=== PATIENT | male | born 1970 | race Caucasian/White ===

== ENCOUNTER 2017-12-19 11:30 | Inpatient (IN) | payer OTHER ==
[~2017-12-19] VITALS: Ht 172.7 cm; Wt 81.6 kg
[2017-12-19] MEDS ORDERED: FENTANYL1 EAC1 TOPIC (12:09)
[2017-12-19] MEDS ORDERED: KLONOPIN1 MG GT (12:09)
[2017-12-19] MEDS ORDERED: CEFEPIME-D2 GM/50 ML IVPB (12:09)
[2017-12-19] MEDS ORDERED: FERROUS SULFAT325 MG GT (12:09)
[2017-12-19] MEDS ORDERED: VITAMIN D1000 UNI1 GT (12:09)
[2017-12-19] MEDS ORDERED: BISACODYL5 MG RECTAL (12:09)
[2017-12-19] MEDS ORDERED: DOCUSATE SODIU100 MG ORAL (12:09)
[2017-12-19] MEDS ORDERED: HALOPERIDOL1 MG GT (12:09)
[2017-12-19] MEDS ORDERED: AMLODIPINE BESYL5 MG GT (12:09)
[2017-12-19] MEDS ORDERED: ACETAMINOPHEN325 M1 GT (12:09)
[2017-12-19] MEDS ORDERED: HYDRALAZINE HCL10 MG IV (12:09)
[2017-12-19] MEDS ORDERED: ALBUTEROL2.5 MG/3 M INH (12:09)
[2017-12-19 12:17] VITALS: BP 142/85
[2017-12-19] MEDS ORDERED: Morphine Sulfate 4mg/ml Inj IVP ONE (12:45)
[2017-12-19 12:53] LABS: BASOPHILS % (AUTO) 0.8 % (0.0-2.0); EOSINOPHILS % (AUTO) 3.4 % (0.0-3.0); HEMATOCRIT 29.2 % (42.0-52.0); HEMOGLOBIN 9.2 G/DL (14.2-18.0); LYMPHOCYTES % (AUTO) 24.4 % (20.0-45.0); MEAN CORPUSCULAR VOLUME 82 FL (80-99); MONOCYTES % (AUTO) 6.6 % (1.0-10.0); NEUTROPHILS % (AUTO) 64.9 % (45.0-75.0); PLATELET COUNT 338 K/UL (150-450); RED BLOOD COUNT 3.56 M/UL (4.70-6.10); RED CELL DISTRIBUTION WIDTH 17.4 % (11.6-14.8); WHITE BLOOD COUNT 6.8 K/UL (4.8-10.8)
[2017-12-19 13:00] LABS: ANION GAP 4 mmol/L (5-15); BLOOD UREA NITROGEN 15 mg/dL (7-18); CALCIUM 9.3 MG/DL (8.5-10.1); CARBON DIOXIDE 30 MMOL/L (21-32); CHLORIDE 99 MMOL/L (98-107); CREATININE 0.9 MG/DL (0.55-1.30); POTASSIUM 4.6 MMOL/L (3.5-5.1); SODIUM 133 MMOL/L (136-145)
[2017-12-19 13:08] LABS: INR 1.1 (0.9-1.1)
[2017-12-19 13:13] LABS: ALANINE AMINOTRANSFERASE 16 U/L (12-78); ALBUMIN 2.9 G/DL (3.4-5.0); ALBUMIN/GLOBULIN RATIO 0.5 (1.0-2.7); ALKALINE PHOSPHATASE 117 U/L (46-116); ASPARTATE AMINO TRANSFERASE 15 U/L (15-37); BILIRUBIN,TOTAL 0.5 MG/DL (0.2-1.0)
[2017-12-19 13:28] LABS: APPEARANCE,URINE TURBID; BILIRUBIN, URINE NEGATIVE (NEGATIVE); COLOR,URINE PALE YELLOW; GLUCOSE, URINE (UA) NEGATIVE (NEGATIVE); KETONES,URINE NEGATIVE (NEGATIVE); LEUKOCYTE ESTERASE ,URINE 1+ (NEGATIVE); NITRITE,URINE NEGATIVE (NEGATIVE); PH,URINE 8 (4.5-8.0); PROTEIN,URINE 2+ (NEGATIVE); UROBILINOGEN,URINE NORMAL MG/DL (0.0-1.0)
[2017-12-19 13:43] VITALS: BP 123/80
--- NOTE | 2017-12-19 14:23 | Emergency Room Report ---
History of Present Illness General Chief Complaint: Dyspnea/Respdistress Source: Patient, Medical Record, EMS Present Illness HPI This patient is brought in from a sn[facility] facility. He has a history of tracheostomy and pulled out his trach because he states that it was bothering him. He wanted it removed. He has no other complaints other than that he is having an anxiety attack and wants antianxiety medications. He has a history of respiratory failure and was unable to extubate and had to undergo tracheostomy previously. He was on a T collar. Allergies: Coded Allergies: ERYTHROMYCIN BASE (Verified Allergy, Unknown, 12/19/17) Uncoded Allergies: ERYTHROMYCIN (Allergy, Unknown, 12/19/17) Patient History Past Medical History: see triage record, HTN, COPD, renal disease Past Surgical History: other - Tracheostomy Social History: Denies: smoking, alcohol use, drug use Reviewed Nursing Documentation: PMH: Agreed; PSxH: Agreed Nursing Documentation-PMH Hx Diabetes: Yes History Of Psychiatric Problem: Yes Hx Seizures: Yes Review of Systems All Other Systems: negative except mentioned in HPI Physical Exam Vital Signs Date Time Temp Pulse Resp B/P (MAP) Pulse Ox O2 Delivery O2 Flow Rate FiO2 12/19/17 11:33 97.6 80 16 144/92 97 Nasal Cannula 3.0 97.5 Sp02 EP Interpretation: reviewed, normal General Appearance: no apparent distress, alert, GCS 15, non-toxic, other - morbid obesity Head: normocephalic, atraumatic Eyes: bilateral eye normal inspection, bilateral eye PERRL ENT: hearing grossly normal, normal pharynx, no angioedema, normal voice, other - Dressing C/D/I Neck: full range of motion, supple/symm/no masses, other - Trach site dressed ( C/DI) Respiratory: chest non-tender, lungs clear, normal breath sounds, no respiratory distress, no retraction, no accessory muscle use, speaking full sentences Cardiovascular #1: regular rate, rhythm, no edema Gastrointestinal: normal bowel sounds, non tender, soft, non-distended, no guarding, no rebound Rectal: deferred Musculoskeletal: normal range of motion Neurologic: alert, oriented x3, responsive, motor strength/tone normal, sensory intact, speech normal Psychiatric: judgement/insight normal, memory normal, mood/affect normal, no suicidal/homicidal ideation Skin: normal color, no rash, warm/dry, well hydrated Medical Decision Making Diagnostic Impression: Primary Impression: Trach decannulation ER Course This patient did a self trach decannulation. The patient does not want to have a tracheostomy any longer. The patient has no respiratory distress. The patient's O2 sat is 100%. Patient is well-appearing. I will admit the patient to the [facility] given his history of poor weaning off of ventilation as I'm concerned that if he were to decompensate he would be a difficult intubation given his morbid obesity. The patient is on a trach collar previously. Otherwise, the patient's evaluation is benign. The patient is admitted to the ICU step down. Laboratory Tests Test 12/19/17 12:00 12/19/17 13:03 White Blood Count 6.8 K/UL (4.8-10.8) Red Blood Count 3.56 M/UL (4.70-6.10) L Hemoglobin 9.2 G/DL (14.2-18.0) L Hematocrit 29.2 % (42.0-52.0) L Mean Corpuscular Volume 82 FL (80-99) Mean Corpuscular Hemoglobin 25.8 PG (27.0-31.0) L Mean Corpuscular Hemoglobin Concent 31.4 G/DL (32.0-36.0) L Red Cell Distribution Width 17.4 % (11.6-14.8) H Platelet Count 338 K/UL (150-450) Mean Platelet Volume 7.8 FL (6.5-10.1) Neutrophils (%) (Auto) 64.9 % (45.0-75.0) Lymphocytes (%) (Auto) 24.4 % (20.0-45.0) Monocytes (%) (Auto) 6.6 % (1.0-10.0) Eosinophils (%) (Auto) 3.4 % (0.0-3.0) H Basophils (%) (Auto) 0.8 % (0.0-2.0) Prothrombin Time 11.3 SEC (9.30-11.50) Prothrombin Time INR 1.1 (0.9-1.1) PTT 29 SEC (23-33) Sodium Level 133 MMOL/L (136-145) L Potassium Level 4.6 MMOL/L (3.5-5.1) Chloride Level 99 MMOL/L (98-107) Carbon Dioxide Level 30 MMOL/L (21-32) Anion Gap 4 mmol/L (5-15) L Blood Urea Nitrogen 15 mg/dL (7-18) Creatinine 0.9 MG/DL (0.55-1.30) Estimate Glomerular Filtration Rate > 60 mL/min (>60) Glucose Level 101 MG/DL (74-106) Calcium Level 9.3 MG/DL (8.5-10.1) Total Bilirubin 0.5 MG/DL (0.2-1.0) Aspartate Amino Transferase (AST) 15 U/L (15-37) Alanine Aminotransferase (ALT) 16 U/L (12-78) Alkaline Phosphatase 117 U/L (46-116) H Total Protein 8.2 G/DL (6.4-8.2) Albumin 2.9 G/DL (3.4-5.0) L Globulin 5.3 g/dL Albumin/Globulin Ratio 0.5 (1.0-2.7) L Thyroid Stimulating Hormone (TSH) 4.678 uiU/mL (0.358-3.740) Urine Color Pale yellow Urine Appearance Turbid Urine pH 8 (4.5-8.0) Urine Specific [place] 1.015 (1.005-1.035) Urine Protein 2+ (NEGATIVE) H Urine Glucose (UA) Negative (NEGATIVE) Urine Ketones Negative (NEGATIVE) Urine Occult Blood Negative (NEGATIVE) Urine Nitrite Negative (NEGATIVE) Urine Bilirubin Negative (NEGATIVE) Urine Urobilinogen Normal MG/DL (0.0-1.0) Urine Leukocyte Esterase 1+ (NEGATIVE) H Urine RBC 0-2 /HPF (0 - 0) H Urine WBC 5-10 /HPF (0 - 0) H Urine Squamous Epithelial Cells Few /LPF (NONE/OCC) Urine Amorphous Sediment Many /LPF (NONE) H Urine Bacteria Few /HPF (NONE) EKG Diagnostic Results Rate: normal Rhythm: NSR ST Segments: no acute changes Rhythm Strip Diag. Results EP Interpretation: yes Rate: 70's Rhythm: NSR, no PVC's, no ectopy Last Vital Signs Date Time Temp Pulse Resp B/P (MAP) Pulse Ox O2 Delivery O2 Flow Rate FiO2 12/19/17 13:43 97.5 78 16 123/80 99 Nasal Cannula 3.0 97.5 Disposition: ADMITTED INPATIENT Condition: Stable Referrals: NON PHYSICIAN (PCP) JEFF ALCANTAR D.O. December 19, 2017 14:23
[2017-12-19 14:46] VITALS: BP 121/79
--- NOTE | 2017-12-19 14:49 | Diagnostic Imaging Report ---
Indication: Shortness of breath, chest pain Technique: One view of the chest Comparison: none Findings: There is some atelectasis at the left lung base. The heart is enlarged. The lungs and pleural spaces are otherwise clear. Impression: Left basilar atelectasis. No other acute process
[2017-12-19 16:00] VITALS: BP 127/85
[2017-12-19] MEDS ORDERED: LABETALOL HCL200 MG GT (16:16)
[2017-12-19] MEDS ORDERED: VALPROIC ACID1 ML GT (16:16)
[2017-12-19] MEDS ORDERED: CLONIDINE 0.2M0.2 MG GT (16:16)
[2017-12-19] MEDS ORDERED: XIFAXAN550 MG GT (16:16)
[2017-12-19] MEDS ORDERED: LACTULOSE20 GM/301 GT (16:16)
[2017-12-19] MEDS ORDERED: LANSOPRAZOLE30 MG GT (16:16)
[2017-12-19] MEDS ORDERED: LORAZEPAM2 MG/1 M1 IV (16:16)
[2017-12-19] MEDS ORDERED: HydrALAZINE 10mg Tab GT PRN (16:30)
[2017-12-19] MEDS ORDERED: cloNIDine 0.2mg Tab GT PRN (16:30)
[2017-12-19] MEDS ORDERED: Acetaminophen 650mg/20.3ml GT PRN (16:30)
[2017-12-19] MEDS ORDERED: Albuterol ud Inhalation HHN PRN (16:30)
[2017-12-19] MEDS ORDERED: HYDROcodone/Acetamin 10/325 tab ORAL PRN (17:00)
[2017-12-19] MEDS: Docusate 100mg cap ORAL SCH (18:00)
[2017-12-19] MEDS: LORazepam Inj 2mg/ml 1ml IV PRN (18:08)
[2017-12-19 20:00] VITALS: BP 142/97
[2017-12-19] MEDS ORDERED: Ipratropium 0.02% Inh Soln 2.5ml UD HHN PRN (20:00)
[2017-12-19] MEDS: Morphine Sulfate 4mg/ml Inj IVP PRN (20:40)
[2017-12-19] MEDS: Lactulose 20gm/30ml UDC GT SCH (21:34)
[2017-12-19] MEDS: Labetalol 200mg tab GT SCH (21:36)
[2017-12-19] MEDS: Valproic Acid 250mg/5ml Liquid NG SCH (21:36)
[2017-12-19] MEDS: Heparin 5000 units/ml inj SUBQ SCH (21:37)
[2017-12-19] MEDS: Haloperidol 1mg tab GT SCH (21:37)
[2017-12-20] VITALS: BP 127/84
--- NOTE | 2017-12-20 00:04 | Pulmonolgy Critical Care Note ---
Critical Care - Asmt/Plan Assessment/Plan: Patient is brought in from a [facility] facility. He has a history of tracheostomy and pulled out his trach because he states that it was bothering him. He wanted it removed. He has no other complaints other than that he is having an anxiety attack and wants antianxiety medications. He has a history of respiratory failure and was unable to extubate and had to undergo tracheostomy previously. He was on a T collar. Allergies: Coded Allergies: ERYTHROMYCIN BASE (Verified Allergy, Unknown, 12/19/17) Uncoded Allergies: ERYTHROMYCIN (Allergy, Unknown, 12/19/17) Patient History Past Medical History: see triage record, HTN, COPD, renal disease Past Surgical History: other - Tracheostomy Social History: Denies: smoking, alcohol use, drug use Reviewed Nursing Documentation: PMH: Agreed; PSxH: Agreed Nursing Documentation-PMH Hx Diabetes: Yes History Of Psychiatric Problem: Yes Hx Seizures: Yes Review of Systems All Other Systems: negative except mentioned in HPI Physical Exam Vital Signs Date Time Temp Pulse Resp B/P (MAP) Pulse Ox O2 Delivery O2 Flow Rate FiO2 12/19/17 11:33 97.6 80 16 144/92 97 Nasal Cannula 3.0 97.5 Sp02 EP Interpretation: reviewed, normal General Appearance: no apparent distress, alert, GCS 15, non-toxic, other - morbid obesity Head: normocephalic, atraumatic Eyes: bilateral eye normal inspection, bilateral eye PERRL ENT: hearing grossly normal, normal pharynx, no angioedema, normal voice, other - Dressing C/D/I Neck: full range of motion, supple/symm/no masses, other - Trach site dressed ( C/DI) Respiratory: chest non-tender, lungs clear, normal breath sounds, no respiratory distress, no retraction, no accessory muscle use, speaking full sentences Cardiovascular #1: regular rate, rhythm, no edema Gastrointestinal: normal bowel sounds, non tender, soft, non-distended, no guarding, no rebound Rectal: deferred Musculoskeletal: normal range of motion Neurologic: alert, oriented x3, responsive, motor strength/tone normal, sensory intact, speech normal Psychiatric: judgement/insight normal, memory normal, mood/affect normal, no suicidal/homicidal ideation Skin: normal color, no rash, warm/dry, well hydrated Medical Decision Making Diagnostic Impression: Primary Impression: Trach decannulation This patient did a self trach decannulation. The patient does not want to have a tracheostomy any longer. The patient has no respiratory distress. The patient's O2 sat is 100%. Patient is well-appearing. I will admit the patient to the [facility] given his history of poor weaning off of ventilation as I'm concerned that if he were to decompensate he would be a difficult intubation given his morbid obesity. The patient is on a trach collar previously. Otherwise, the patient's evaluation is benign. The patient is admitted to the ICU step down. Plan: NC O2 Aspiration Precautions ABG CXR: L basal atelectasis Speech therapy in AM SQ Heparin Laboratory Tests Test 12/19/17 12:00 12/19/17 13:03 White Blood Count 6.8 K/UL (4.8-10.8) Red Blood Count 3.56 M/UL (4.70-6.10) L Hemoglobin 9.2 G/DL (14.2-18.0) L Hematocrit 29.2 % (42.0-52.0) L Mean Corpuscular Volume 82 FL (80-99) Mean Corpuscular Hemoglobin 25.8 PG (27.0-31.0) L Mean Corpuscular Hemoglobin Concent 31.4 G/DL (32.0-36.0) L Red Cell Distribution Width 17.4 % (11.6-14.8) H Platelet Count 338 K/UL (150-450) Mean Platelet Volume 7.8 FL (6.5-10.1) Neutrophils (%) (Auto) 64.9 % (45.0-75.0) Lymphocytes (%) (Auto) 24.4 % (20.0-45.0) Monocytes (%) (Auto) 6.6 % (1.0-10.0) Eosinophils (%) (Auto) 3.4 % (0.0-3.0) H Basophils (%) (Auto) 0.8 % (0.0-2.0) Prothrombin Time 11.3 SEC (9.30-11.50) Prothrombin Time INR 1.1 (0.9-1.1) PTT 29 SEC (23-33) Sodium Level 133 MMOL/L (136-145) L Potassium Level 4.6 MMOL/L (3.5-5.1) Chloride Level 99 MMOL/L (98-107) Carbon Dioxide Level 30 MMOL/L (21-32) Anion Gap 4 mmol/L (5-15) L Blood Urea Nitrogen 15 mg/dL (7-18) Creatinine 0.9 MG/DL (0.55-1.30) Estimate Glomerular Filtration Rate > 60 mL/min (>60) Glucose Level 101 MG/DL (74-106) Calcium Level 9.3 MG/DL (8.5-10.1) Total Bilirubin 0.5 MG/DL (0.2-1.0) Aspartate Amino Transferase (AST) 15 U/L (15-37) Alanine Aminotransferase (ALT) 16 U/L (12-78) Alkaline Phosphatase 117 U/L (46-116) H Total Protein 8.2 G/DL (6.4-8.2) Albumin 2.9 G/DL (3.4-5.0) L Globulin 5.3 g/dL Albumin/Globulin Ratio 0.5 (1.0-2.7) L Thyroid Stimulating Hormone (TSH) 4.678 uiU/mL (0.358-3.740) Urine Color Pale yellow Urine Appearance Turbid Urine pH 8 (4.5-8.0) Urine Specific [place] 1.015 (1.005-1.035) Urine Protein 2+ (NEGATIVE) H Urine Glucose (UA) Negative (NEGATIVE) Urine Ketones Negative (NEGATIVE) Urine Occult Blood Negative (NEGATIVE) Urine Nitrite Negative (NEGATIVE) Urine Bilirubin Negative (NEGATIVE) Urine Urobilinogen Normal MG/DL (0.0-1.0) Urine Leukocyte Esterase 1+ (NEGATIVE) H Urine RBC 0-2 /HPF (0 - 0) H Urine WBC 5-10 /HPF (0 - 0) H Urine Squamous Epithelial Cells Few /LPF (NONE/OCC) Urine Amorphous Sediment Many /LPF (NONE) H Urine Bacteria Few /HPF (NONE) EKG Diagnostic Results Rate: normal Rhythm: NSR ST Segments: no acute changes Rhythm Strip Diag. Results EP Interpretation: yes Rate: 70's Rhythm: NSR, no PVC's, no ectopy Last Vital Signs Date Time Temp Pulse Resp B/P (MAP) Pulse Ox O2 Delivery O2 Flow Rate FiO2 12/19/17 13:43 97.5 78 16 123/80 99 Nasal Cannula 3.0 97.5 Critical Care - Objective Last 24 Hour Vital Signs Date Time Temp Pulse Resp B/P (MAP) Pulse Ox O2 Delivery O2 Flow Rate FiO2 12/19/17 21:36 84 142/97 12/19/17 20:41 88 18 Nasal Cannula 3.0 32 12/19/17 20:35 Nasal Cannula 3.0 32 12/19/17 20:35 97 Nasal Cannula 3.0 32 12/19/17 20:00 78 12/19/17 20:00 98.2 78 20 142/97 100 Room Air 98.2 12/19/17 16:00 98.0 78 18 127/85 98 Room Air 98.0 12/19/17 16:00 83 12/19/17 14:49 97.5 77 16 121/79 99 Nasal Cannula 3.0 97.5 12/19/17 14:46 97.5 77 16 121/79 99 Nasal Cannula 3.0 97.5 12/19/17 13:43 97.5 78 16 123/80 99 Nasal Cannula 3.0 97.5 12/19/17 13:37 97.5 12/19/17 12:53 97.5 12/19/17 12:17 80 16 Nasal Cannula 3.0 12/19/17 12:17 97.5 80 16 142/85 97 Nasal Cannula 3.0 97.5 12/19/17 11:33 97.6 80 16 144/92 97 Nasal Cannula 3.0 97.5 Critical Care - Subjective ROS Limited/Unobtainable: No Condition: stable EKG Rhythm: Sinus Rhythm FI02: 32 Sputum Amount: None Allan Elizalde MD December 20, 2017 00:04
[2017-12-20] MEDS: Morphine Sulfate 4mg/ml Inj IVP PRN ×4 (03:59→16:44)
[2017-12-20 04:00] VITALS: BP 140/84
[2017-12-20] MEDS: Haloperidol 1mg tab GT SCH ×3 (06:20→21:57)
[2017-12-20 08:00] VITALS: BP 126/77
[2017-12-20] MEDS: Labetalol 200mg tab GT SCH ×2 (09:00→20:37)
[2017-12-20] MEDS: Valproic Acid 250mg/5ml Liquid NG SCH ×2 (09:00→20:37)
[2017-12-20] MEDS: Docusate 100mg cap ORAL SCH ×2 (09:00→16:44)
[2017-12-20] MEDS: Lactulose 20gm/30ml UDC GT SCH ×2 (09:00→20:36)
[2017-12-20] MEDS: Heparin 5000 units/ml inj SUBQ SCH ×2 (09:00→20:39)
[2017-12-20] MEDS: LORazepam Inj 2mg/ml 1ml IV PRN (10:59)
[2017-12-20 12:00] VITALS: BP 131/72
[2017-12-20] MEDS: HYDROcodone/Acetamin 10/325 tab GT PRN ×2 (15:01→20:04)
[2017-12-20 16:00] VITALS: BP 114/68
[2017-12-20 20:00] VITALS: BP 120/66
--- NOTE | 2017-12-20 21:43 | General Progress Note ---
Assessment/Plan Status: progressing Assessment/Plan s/p self decanulation afebrile chronic pain syndrome obese moniter post decanulation Subjective ROS Limited/Unobtainable: Yes Allergies: Coded Allergies: ERYTHROMYCIN BASE (Verified Allergy, Unknown, 12/19/17) Uncoded Allergies: ERYTHROMYCIN (Allergy, Unknown, 12/19/17) Objective Last 24 Hour Vital Signs Date Time Temp Pulse Resp B/P (MAP) Pulse Ox O2 Delivery O2 Flow Rate FiO2 12/20/17 20:37 86 120/66 12/20/17 20:00 98.1 86 20 120/66 97 Nasal Cannula 2.0 98.1 12/20/17 20:00 89 12/20/17 19:11 Room Air 21 12/20/17 17:13 97.5 12/20/17 16:44 97.5 12/20/17 16:15 78 12/20/17 16:00 97.5 12/20/17 16:00 98.1 82 20 114/68 97 Nasal Cannula 2.0 98.1 12/20/17 15:01 97.5 12/20/17 12:38 97.5 12/20/17 12:00 78 12/20/17 12:00 97.5 83 21 131/72 94 Nasal Cannula 2.0 97.5 12/20/17 09:00 79 126/77 12/20/17 08:07 Room Air 21 12/20/17 08:00 85 12/20/17 08:00 98.4 79 20 126/77 96 Nasal Cannula 2.0 98.4 12/20/17 07:59 98.2 12/20/17 04:00 87 12/20/17 04:00 98.2 73 20 140/84 97 Room Air 98.2 12/20/17 02:07 3.0 32 12/20/17 00:00 75 12/20/17 00:00 98.2 73 20 127/84 97 Room Air 98.2 Intake and Output 12/19/17 12/20/17 19:00 07:00 Intake Total 555 ml Output Total 710 ml Balance -155 ml Intake Free Water 60 ml Tube Feeding 495 ml Output Urine Total 710 ml # Voids 1 Height (Feet): 5 Height (Inches): 8.00 Weight (Pounds): 180 Neck: supple Cardiovascular: normal rate Respiratory/Chest: lungs clear Abdomen: soft Evelina Mccallum MD December 20, 2017 21:43
[2017-12-21] VITALS: BP 117/82
[2017-12-21] MEDS: Morphine Sulfate 4mg/ml Inj IVP PRN ×5 (02:13→23:54)
[2017-12-21 04:00] VITALS: BP 112/67
[2017-12-21] MEDS: HYDROcodone/Acetamin 10/325 tab GT PRN ×3 (04:40→21:43)
[2017-12-21] MEDS: Haloperidol 1mg tab GT SCH ×3 (07:00→23:51)
[2017-12-21 08:00] VITALS: BP 141/72
[2017-12-21] MEDS: Valproic Acid 250mg/5ml Liquid NG SCH ×2 (08:57→23:50)
[2017-12-21] MEDS: Lactulose 20gm/30ml UDC GT SCH ×2 (08:57→21:00)
[2017-12-21] MEDS: Labetalol 200mg tab GT SCH ×2 (08:58→23:52)
[2017-12-21] MEDS: Docusate 100mg cap ORAL SCH ×2 (08:58→17:42)
[2017-12-21] MEDS: Heparin 5000 units/ml inj SUBQ SCH ×2 (08:59→23:58)
[2017-12-21] MEDS: LORazepam Inj 2mg/ml 1ml IV PRN ×2 (11:49→21:43)
[2017-12-21 12:00] VITALS: BP 117/72
[2017-12-21] MEDS ORDERED: Sterile Water For Irrig 2000ml IRRIG ONE (13:53)
[2017-12-21] MEDS ORDERED: NS 275ml ONE (13:53)
[2017-12-21 16:00] VITALS: BP 117/72
--- NOTE | 2017-12-21 17:11 | Consultation ---
History of Present Illness General Date patient seen: December 21, 2017 Time patient seen: 19:40 - pm Chief Complaint: Dyspnea/Respdistress Referring physician: Dr. Mccallum Reason for Consultation: Pain managament Present Illness HPI This is a 47y/o male being seen on the [facility] of [facility] [place] for initial pain management consultation. Patient was admitted to the hospital due to pulling out his tracheostomy tube and has been c/o pain. Patient was started on Morphine 4mg IV Q4H PRN severe pain and Hasty 10/325mg PO 1 tab Q6H PRN moderate pain. Allergies: Coded Allergies: ERYTHROMYCIN BASE (Verified Allergy, Unknown, 12/19/17) Uncoded Allergies: ERYTHROMYCIN (Allergy, Unknown, 12/19/17) Medication History Scheduled Bisacodyl* (Dulcolax*), 20 MG RECTAL ONCE, (Reported) Clonazepam* (Klonopin*), 1 MG GT EVERY 12 HOURS, (Reported) Docusate Sodium* (Docusate Sodium*), 100 MG ORAL TWICE A DAY, (Reported) Fentanyl 50MCG Patch (Fentanyl 50MCG Patch*), 1 PATCH TOPIC EVERY 72 HOURS, ( Reported) Ferrous Sulfate* (Ferrous Sulfate*), 300 MG GT DAILY, (Reported) Haloperidol* (Haldol*), 3 MG GT EVERY 8 HOURS, (Reported) Hydralazine Hcl* (Hydralazine Hcl*), 10 MG IV EVERY 30 MINUTES, (Reported) Labetalol Hcl* (Normodyne*), 200 MG GT EVERY 12 HOURS, (Reported) Lactulose (Lactulose*), 30 ML GT EVERY 12 HOURS, (Reported) Lansoprazole* (Lansoprazole*), 30 MG GT DAILY, (Reported) Rifaximin* (Xifaxan*), 550 MG GT EVERY 12 HOURS, (Reported) Valproic Acid (Valproic Acid), 500 MG GT EVERY 12 HOURS, (Reported) Scheduled PRN Acetaminophen* (Acetaminophen 325MG Tablet*), 650 MG GT Q4H PRN for Pain Scale ( 6-10), (Reported) Albuterol Sulfate* (Albuterol Sulfate Hhn*), 3 ML INH Q4H PRN for Shortness of Breath, (Reported) Clonidine HCl (Clonidine HCl), 0.2 MG GT Q6HR PRN for For High Blood Pressure, ( Reported) Lorazepam* (Lorazepam*), 2 MG IV EVERY 6 HOURS PRN for Agitation, (Reported) Discontinued Medications Amlodipine Besylate* (Amlodipine Besylate*), 5 MG GT DAILY, (Reported) Discontinued Reason: Therapy completed Cefepime Hcl/D5w (Cefepime-Dextrose 2 Gm/50 Ml), 2 GM IVPB EVERY 12 HOURS, ( Reported) Discontinued Reason: Therapy completed Cholecalciferol (Vitamin D3)* (Vitamin D*), 2,000 UNITS GT DAILY, (Reported) Discontinued Reason: Therapy completed Patient History Healthcare decision maker Resuscitation status Full Code Advanced Directive on File No Review of Systems Constitutional: Reports: weakness Eye: Reports: no symptoms ENT: Reports: no symptoms Respiratory: Reports: no symptoms Cardiovascular: Reports: no symptoms Gastrointestinal: Reports: no symptoms Genitourinary: Reports: no symptoms Musculoskeletal: Reports: muscle stiffness Skin: Reports: no symptoms Psychiatric: Reports: no symptoms Neurological: Reports: no symptoms Endocrine: Reports: no symptoms Hematologic/Lymphatic: Reports: no symptoms Physical Exam General Appearance: no apparent distress, alert HEENT: PERRL, EOMI Neck: tenderness Respiratory/Chest: decreased breath sounds Cardiovascular/Chest: normal rate, regular rhythm Abdomen: feeding tube Extremities: non-tender Skin Exam: warm/dry Neurologic: alert, oriented x 3 Last 24 Hour Vital Signs Date Time Temp Pulse Resp B/P (MAP) Pulse Ox O2 Delivery O2 Flow Rate FiO2 12/21/17 16:00 80 12/21/17 12:00 97.7 61 21 117/72 97 Nasal Cannula 2.0 97.7 12/21/17 12:00 78 12/21/17 08:58 83 122/74 12/21/17 08:37 Room Air 21 12/21/17 08:37 89 16 Room Air 21 12/21/17 08:00 82 12/21/17 08:00 97.9 89 20 141/72 96 Nasal Cannula 2.0 97.9 12/21/17 05:39 98.0 12/21/17 04:40 98.0 12/21/17 04:00 79 12/21/17 04:00 98.5 81 20 112/67 97 Nasal Cannula 2.0 98.5 12/21/17 02:43 98.0 12/21/17 02:13 98.0 12/21/17 00:00 80 12/21/17 00:00 98.0 86 20 117/82 97 Nasal Cannula 2.0 98.0 12/20/17 20:37 86 120/66 12/20/17 20:00 98.1 86 20 120/66 97 Nasal Cannula 2.0 98.1 12/20/17 20:00 89 12/20/17 19:11 Room Air 21 Intake and Output 12/20/17 12/21/17 19:00 07:00 Intake Total 495 ml 225 ml Output Total 100 ml Balance 395 ml 225 ml Tube Feeding 495 ml 225 ml Output Urine Total 100 ml # Voids 1 # Bowel Movements 3 Height (Feet): 5 Height (Inches): 8.00 Weight (Pounds): 180 Medications Current Medications Medications (Trade) Dose Ordered Sig/Nati Route PRN Reason Start Time Stop Time Status Last Admin Dose Admin Acetaminophen (Tylenol) 650 mg Q4H PRN GT Mild Pain/Temp > 100.5 12/19/17 16:30 01/18/18 16:29 Acetaminophen/ Hydrocodone Bitart (Hasty 10/325) 1 tab Q4H PRN GT Moderate Pain (Pain Scale 4-6) 12/19/17 17:30 12/26/17 17:29 12/21/17 04:40 Albuterol Sulfate (Proventil) 2.5 mg Q4H PRN HHN Shortness of Breath 12/19/17 16:30 12/24/17 16:29 Clonazepam (KlonoPIN) 1 mg EVERY 12 HOURS GT 12/19/17 21:00 12/26/17 20:59 12/21/17 08:58 Clonidine HCl (Catapres tab) 0.2 mg Q6H PRN GT SBP > 160mmHg 12/19/17 16:30 01/18/18 16:29 Docusate Sodium (Colace) 100 mg TWICE A DAY ORAL 12/19/17 18:00 01/18/18 17:59 12/21/17 08:58 Haloperidol (Haldol) 3 mg EVERY 8 HOURS GT 12/19/17 22:00 01/18/18 21:59 12/21/17 13:38 Heparin Sodium (Porcine) (Heparin 5000 units/ml) 5,000 units EVERY 12 HOURS SUBQ 12/19/17 21:00 01/18/18 20:59 12/21/17 08:59 Hydralazine HCl (Apresoline) 10 mg Q4H PRN GT SBP > 160mmHg 12/19/17 16:30 01/18/18 16:29 Ipratropium [place] (Atrovent) 500 mcg Q6H PRN HHN For wheezing, SOB 12/19/17 20:00 12/24/17 19:59 Labetalol HCl (Normodyne) 200 mg EVERY 12 HOURS GT 12/19/17 21:00 01/18/18 20:59 12/21/17 08:58 Lactulose (Cephulac) 20 gm EVERY 12 HOURS GT 12/19/17 21:00 01/18/18 20:59 12/21/17 08:57 Lansoprazole (Prevacid) 30 mg DAILY GT 12/20/17 09:00 01/19/18 08:59 12/21/17 08:57 Lorazepam (Ativan 2mg/ml 1ml) 2 mg Q6H PRN IV Agitation 12/19/17 16:30 12/26/17 16:29 12/21/17 11:49 Morphine Sulfate (Morphine Sulfate) 4 mg Q4H PRN IVP Severe Pain (Pain Scale 7-10) 12/19/17 17:00 12/26/17 16:59 12/21/17 14:48 Rifaximin (Xifaxan) 550 mg EVERY 12 HOURS GT 12/19/17 21:00 12/26/17 20:59 12/21/17 08:58 Valproic Acid (Depakene) 500 mg EVERY 12 HOURS NG 12/19/17 21:00 01/18/18 20:59 12/21/17 08:57 Assessment/Plan Assessment/Plan (1) Neck pain (2) S/p decannulation (3) H/o polysubstance abuse (4) Neuropathic pain Patient will be continued on Morphine and Hasty D/w Dr. Lackey and he concurred. Thank you for consultation. ROMAINE LO December 21, 2017 17:11
[2017-12-21] MEDS ORDERED: Methocarbamol 500mg tab ORAL PRN ×2 (17:45→19:11)
[2017-12-21] MEDS ORDERED: Acetaminophen 650mg/20.3ml GT PRN (19:07)
[2017-12-21] MEDS ORDERED: cloNIDine 0.2mg Tab GT PRN (19:08)
[2017-12-21] MEDS ORDERED: HydrALAZINE 10mg Tab GT PRN (19:10)
[2017-12-21] MEDS ORDERED: Ipratropium 0.02% Inh Soln 2.5ml UD HHN PRN (19:12)
[2017-12-21 20:00] VITALS: BP 128/80
[2017-12-21] MEDS ORDERED: Albuterol ud Inhalation HHN PRN (20:30)
--- NOTE | 2017-12-21 21:45 | Consultation ---
DATE OF CONSULTATION: 12/21/2017 INFECTIOUS DISEASE CONSULTATION CONSULTING PHYSICIAN: Dyllan Agarwal M.D. PRIMARY ATTENDING PHYSICIAN: Evelina Mccallum M.D. REASON FOR CONSULT: Skin rashes. HISTORY OF PRESENT ILLNESS: This is a 47-year-old white male admitted on 12/19/2017 from alf facility after self-removal of tracheostomy. The patient has history of respiratory failure. Previous attempts for extubation were not successful. He had also some skin lesions and history of skin abscess before. PAST MEDICAL HISTORY: COPD, history of chronic respiratory failure with tracheostomy, history of G-tube placement, hypertension, pulmonary hypertension, history of ARDS. ALLERGIES: Allergic to erythromycin. MEDICATIONS: Prevacid, haloperidol, clonazepam, lactulose, rifaximin, valproic acid, heparin, ipratropium, [place], morphine, clonidine, hydralazine, lorazepam, and Tylenol. SOCIAL HISTORY: [facility] resident. Single. He has history of methamphetamine abuse in the past. REVIEW OF SYSTEMS: Unobtainable. The patient is asleep. PHYSICAL EXAMINATION: VITAL SIGNS: Temperature 98.5, pulse 83, blood pressure is 122/74. GENERAL APPEARANCE: Seems well developed. No acute distress. HEAD AND NECK: Getting oxygen by nasal cannula. Tracheostomy site is covered. HEART: Normal rate, regular. LUNGS: Clear. ABDOMEN: Soft. G-tube feeding is going on. EXTREMITIES: He has no edema. SKIN: Multiple tattoos of superficial lesions, likely site of infection that mostly are healing. LABORATORY DATA: Sodium 133, potassium 4.6, chloride 99, bicarbonate 30, BUN 15, and creatinine 0.9. WBC 6.8, hemoglobin 9.2, hematocrit 29.2, platelets 338,000. VRE and MRSA screen are negative. Chest x-ray showed left basilar atelectasis. IMPRESSION: Multiple skin lesions, likely healing ulcers, seems to be superficial, status post self-decannulation and removal of tracheostomy, COPD, hypertension, anemia, psychiatric problem. RECOMMENDATION: Observe off antibiotic. At the end of my exam, I thank Dr. Mccallum for involving me in the care of this patient. Dyllan Agarwal M.D. DR: VEENA JOB#: [id number] CC:
--- NOTE | 2017-12-21 22:20 | General Progress Note ---
Assessment/Plan Problem List: (1) T-tube removal per patient SNOMED: 274760065 Status: progressing Assessment/Plan afebrile vitals stable anxiety psychosis dc to snf in am chronic pain syndrome obese moniter post decanulation Subjective ROS Limited/Unobtainable: Yes Allergies: Coded Allergies: ERYTHROMYCIN BASE (Verified Allergy, Unknown, 12/19/17) Uncoded Allergies: ERYTHROMYCIN (Allergy, Unknown, 12/19/17) Objective Last 24 Hour Vital Signs Date Time Temp Pulse Resp B/P (MAP) Pulse Ox O2 Delivery O2 Flow Rate FiO2 12/21/17 19:24 98.0 12/21/17 18:55 83 16 Room Air 21 12/21/17 18:55 Room Air 21 12/21/17 16:00 98.0 78 21 117/72 99 Nasal Cannula 2.0 98.0 12/21/17 16:00 80 12/21/17 12:00 97.7 61 21 117/72 97 Nasal Cannula 2.0 97.7 12/21/17 12:00 78 12/21/17 08:58 83 122/74 12/21/17 08:37 Room Air 21 12/21/17 08:37 89 16 Room Air 21 12/21/17 08:00 82 12/21/17 08:00 97.9 89 20 141/72 96 Nasal Cannula 2.0 97.9 12/21/17 05:39 98.0 12/21/17 04:40 98.0 12/21/17 04:00 79 12/21/17 04:00 98.5 81 20 112/67 97 Nasal Cannula 2.0 98.5 12/21/17 02:43 98.0 12/21/17 02:13 98.0 12/21/17 00:00 80 12/21/17 00:00 98.0 86 20 117/82 97 Nasal Cannula 2.0 98.0 Intake and Output 12/20/17 12/21/17 19:00 07:00 Intake Total 495 ml 270 ml Output Total 100 ml Balance 395 ml 270 ml Tube Feeding 495 ml 270 ml Output Urine Total 100 ml # Voids 1 # Bowel Movements 3 Height (Feet): 5 Height (Inches): 8.00 Weight (Pounds): 180 Cardiovascular: normal rate Respiratory/Chest: lungs clear Abdomen: soft Evelina Mccallum MD December 21, 2017 22:20
[2017-12-22] VITALS: BP 128/80
[2017-12-22 04:00] VITALS: BP 120/71
[2017-12-22] MEDS: Haloperidol 1mg tab GT SCH ×3 (06:16→21:27)
[2017-12-22] MEDS: Morphine Sulfate 4mg/ml Inj IVP PRN ×4 (07:10→21:30)
[2017-12-22 08:00] VITALS: BP 102/62
[2017-12-22] MEDS: HYDROcodone/Acetamin 10/325 tab GT PRN ×3 (08:40→18:05)
[2017-12-22] MEDS: Valproic Acid 250mg/5ml Liquid NG SCH ×2 (08:40→21:26)
[2017-12-22] MEDS: Docusate 100mg cap ORAL SCH ×2 (08:41→18:04)
[2017-12-22] MEDS: Lactulose 20gm/30ml UDC GT SCH ×2 (08:41→21:26)
[2017-12-22] MEDS: Labetalol 200mg tab GT SCH ×2 (08:43→21:27)
[2017-12-22] MEDS: Heparin 5000 units/ml inj SUBQ SCH ×2 (08:49→21:30)
--- NOTE | 2017-12-22 09:18 | General Progress Note ---
Assessment/Plan Assessment/Plan (1) Neck pain (2) S/p decannulation (3) H/o polysubstance abuse (4) Neuropathic pain Patient will be continued on Morphine and [place] D/w Dr. Lackey and he concurred. Subjective Date patient seen: December 22, 2017 Time patient seen: 08:00 - am Constitutional: Reports: weakness HEENT: Reports: no symptoms Cardiovascular: Reports: no symptoms Respiratory: Reports: no symptoms Gastrointestinal/Abdominal: Reports: no symptoms Genitourinary: Reports: no symptoms Neurologic/Psychiatric: Reports: numbness, tingling, weakness Endocrine: Reports: no symptoms Hematologic/Lymphatic: Reports: no symptoms Allergies: Coded Allergies: ERYTHROMYCIN BASE (Verified Allergy, Unknown, 12/19/17) Uncoded Allergies: ERYTHROMYCIN (Allergy, Unknown, 12/19/17) Subjective Patient is in bed continues to c/o pain. He has used 2 Norcos and 3 morphines in the last 24hrs. He has no new complaints at this time. Objective Last 24 Hour Vital Signs Date Time Temp Pulse Resp B/P (MAP) Pulse Ox O2 Delivery O2 Flow Rate FiO2 12/22/17 08:53 Nasal Cannula 2.0 28 12/22/17 08:52 84 16 Nasal Cannula 28 12/22/17 08:43 71 116/61 12/22/17 07:10 98.1 12/22/17 04:00 85 12/22/17 04:00 98.1 77 18 120/71 96 Nasal Cannula 2.0 98.1 12/22/17 00:24 97.7 12/22/17 00:00 85 12/22/17 00:00 97.7 83 20 128/80 94 Nasal Cannula 2.0 97.7 12/21/17 23:52 86 128/80 12/21/17 20:00 97.9 86 20 128/80 94 Nasal Cannula 2.0 97.9 12/21/17 20:00 83 12/21/17 19:24 98.0 12/21/17 18:55 83 16 Room Air 21 12/21/17 18:55 Room Air 21 12/21/17 16:00 98.0 78 21 117/72 99 Nasal Cannula 2.0 98.0 12/21/17 16:00 80 12/21/17 12:00 97.7 61 21 117/72 97 Nasal Cannula 2.0 97.7 12/21/17 12:00 78 Intake and Output 12/21/17 12/22/17 19:00 07:00 Intake Total 315 ml Output Total 600 ml Balance -285 ml Tube Feeding 315 ml Output Urine Total 600 ml # Voids 1 # Bowel Movements 3 1 Height (Feet): 5 Height (Inches): 8.00 Weight (Pounds): 180 Objective General Appearance: no apparent distress, alert HEENT: PERRL, EOMI Neck: tenderness Respiratory/Chest: decreased breath sounds Cardiovascular/Chest: normal rate, regular rhythm Abdomen: feeding tube Extremities: non-tender Skin Exam: warm/dry Neurologic: alert, oriented x 3 ROMAINE LO NBashir PHeriberto December 22, 2017 09:18
--- NOTE | 2017-12-22 10:43 | Infectious Diseases Prog Note ---
Assessment/Plan Assessment/Plan A; Skin lesions COPD s/p self removal of tracheostomy Gastrostomy status HPn P; observe off antibiotic Agree with discharge to SNF Subjective ROS Limited/Unobtainable: Yes Allergies: Coded Allergies: ERYTHROMYCIN BASE (Verified Allergy, Unknown, 12/19/17) Uncoded Allergies: ERYTHROMYCIN (Allergy, Unknown, 12/19/17) Objective Vital Signs Last 24 Hour Vital Signs Date Time Temp Pulse Resp B/P (MAP) Pulse Ox O2 Delivery O2 Flow Rate FiO2 12/22/17 08:53 Nasal Cannula 2.0 28 12/22/17 08:52 84 16 Nasal Cannula 28 12/22/17 08:43 71 116/61 12/22/17 08:00 98.1 83 20 102/62 96 Nasal Cannula 2.0 98.1 12/22/17 07:10 98.1 12/22/17 04:00 85 12/22/17 04:00 98.1 77 18 120/71 96 Nasal Cannula 2.0 98.1 12/22/17 00:24 97.7 12/22/17 00:00 85 12/22/17 00:00 97.7 83 20 128/80 94 Nasal Cannula 2.0 97.7 12/21/17 23:52 86 128/80 12/21/17 20:00 97.9 86 20 128/80 94 Nasal Cannula 2.0 97.9 12/21/17 20:00 83 12/21/17 19:24 98.0 12/21/17 18:55 83 16 Room Air 21 12/21/17 18:55 Room Air 21 12/21/17 16:00 98.0 78 21 117/72 99 Nasal Cannula 2.0 98.0 12/21/17 16:00 80 12/21/17 12:00 97.7 61 21 117/72 97 Nasal Cannula 2.0 97.7 12/21/17 12:00 78 Height (Feet): 5 Height (Inches): 8.00 Weight (Pounds): 180 General Appearance: no acute distress HEENT: mucous membranes moist Respiratory/Chest: lungs clear Cardiovascular: normal rate Abdomen: soft, non tender, other - GT feeding Extremities: no edema Skin: ulcers, other - healing superficial ulcers Neurologic/Psychiatric: other - sleeping Microbiology Date/Time Source Procedure Growth Status 12/19/17 13:40 Nasal Nares MRSA Culture - Final NO METHICILLIN RESISTANT STAPH AUREUS... Complete 12/19/17 13:40 Rectum VRE Culture - Final NO VANCOMYCIN RESISTANT ENTEROCOCCUS ... Complete Current Medications Medications (Trade) Dose Ordered Sig/Nati Route PRN Reason Start Time Stop Time Status Last Admin Dose Admin Acetaminophen (Tylenol) 650 mg Q4H PRN GT Mild Pain/Temp > 100.5 12/21/17 19:07 01/18/18 19:06 Acetaminophen/ Hydrocodone Bitart ([place] 10/325) 1 tab Q4H PRN GT Moderate Pain (Pain Scale 4-6) 12/21/17 19:12 12/26/17 19:11 12/22/17 08:40 Albuterol Sulfate (Proventil) 2.5 mg Q4H PRN HHN Shortness of Breath 12/21/17 20:30 12/24/17 16:29 Clonazepam (KlonoPIN) 1 mg EVERY 12 HOURS GT 12/21/17 21:00 12/26/17 20:59 12/22/17 08:41 Clonidine HCl (Catapres tab) 0.2 mg Q6H PRN GT SBP > 160mmHg 12/21/17 19:08 01/18/18 19:07 Diphenhydramine HCl (Benadryl) 25 mg Q6H PRN ORAL Itching 12/21/17 19:08 01/20/18 19:07 12/21/17 23:53 Docusate Sodium (Colace) 100 mg TWICE A DAY ORAL 12/22/17 09:00 01/18/18 17:59 12/22/17 08:41 Gabapentin (Neurontin) 300 mg Q8HR GT 12/21/17 22:00 01/20/18 21:59 12/22/17 06:16 Haloperidol (Haldol) 3 mg EVERY 8 HOURS GT 12/21/17 22:00 01/18/18 21:59 12/22/17 06:16 Heparin Sodium (Porcine) (Heparin 5000 units/ml) 5,000 units EVERY 12 HOURS SUBQ 12/21/17 21:00 01/18/18 20:59 12/22/17 08:49 Hydralazine HCl (Apresoline) 10 mg Q4H PRN GT SBP > 160mmHg 12/21/17 19:10 01/18/18 19:09 Ipratropium [place] (Atrovent) 500 mcg Q6H PRN HHN For wheezing, SOB 12/21/17 19:12 12/24/17 19:11 Labetalol HCl (Normodyne) 200 mg EVERY 12 HOURS GT 12/21/17 21:00 01/18/18 20:59 12/22/17 08:43 Lactulose (Cephulac) 20 gm EVERY 12 HOURS GT 12/21/17 21:00 01/18/18 20:59 12/22/17 08:41 Lansoprazole (Prevacid) 30 mg DAILY GT 12/22/17 09:00 01/19/18 08:59 12/22/17 08:41 Lorazepam (Ativan 2mg/ml 1ml) 2 mg Q6H PRN IV Agitation 12/21/17 19:11 12/26/17 19:10 12/21/17 21:43 Methocarbamol (Robaxin) 500 mg Q8H PRN ORAL muscle spasm 12/21/17 19:11 01/20/18 19:10 Morphine Sulfate (Morphine Sulfate) 4 mg Q4H PRN IVP Severe Pain (Pain Scale 7-10) 12/21/17 19:12 12/26/17 19:11 12/22/17 07:10 Rifaximin (Xifaxan) 550 mg EVERY 12 HOURS GT 12/21/17 21:00 12/26/17 20:59 12/22/17 08:39 Valproic Acid (Depakene) 500 mg EVERY 12 HOURS NG 12/21/17 21:00 01/18/18 20:59 12/22/17 08:40 CHRISTO BELLO December 22, 2017 10:43
[2017-12-22 12:00] VITALS: BP 99/59
--- NOTE | 2017-12-22 12:10 | General Progress Note ---
Assessment/Plan Problem List: (1) T-tube removal per patient SNOMED: [id number] Status: progressing Assessment/Plan no hypoxia chronic pain syndrome obese moniter post decanulation Subjective ROS Limited/Unobtainable: Yes Allergies: Coded Allergies: ERYTHROMYCIN BASE (Verified Allergy, Unknown, 12/19/17) Uncoded Allergies: ERYTHROMYCIN (Allergy, Unknown, 12/19/17) Objective Last 24 Hour Vital Signs Date Time Temp Pulse Resp B/P (MAP) Pulse Ox O2 Delivery O2 Flow Rate FiO2 12/22/17 08:53 Nasal Cannula 2.0 28 12/22/17 08:52 84 16 Nasal Cannula 28 12/22/17 08:43 71 116/61 12/22/17 08:00 98.1 83 20 102/62 96 Nasal Cannula 2.0 98.1 12/22/17 07:10 98.1 12/22/17 04:00 85 12/22/17 04:00 98.1 77 18 120/71 96 Nasal Cannula 2.0 98.1 12/22/17 00:24 97.7 12/22/17 00:00 85 12/22/17 00:00 97.7 83 20 128/80 94 Nasal Cannula 2.0 97.7 12/21/17 23:52 86 128/80 12/21/17 20:00 97.9 86 20 128/80 94 Nasal Cannula 2.0 97.9 12/21/17 20:00 83 12/21/17 19:24 98.0 12/21/17 18:55 83 16 Room Air 21 12/21/17 18:55 Room Air 21 12/21/17 16:00 98.0 78 21 117/72 99 Nasal Cannula 2.0 98.0 12/21/17 16:00 80 Intake and Output 12/21/17 12/22/17 19:00 07:00 Intake Total 315 ml Output Total 600 ml Balance -285 ml Tube Feeding 315 ml Output Urine Total 600 ml # Voids 1 # Bowel Movements 3 1 Height (Feet): 5 Height (Inches): 8.00 Weight (Pounds): 180 Cardiovascular: normal rate Respiratory/Chest: lungs clear Evelina Mccallum MD December 22, 2017 12:10
[2017-12-22 16:00] VITALS: BP 101/61
[2017-12-22] MEDS ORDERED: Sterile Water For Irrig 2000ml IRRIG ONE (16:29)
[2017-12-22 20:00] VITALS: BP 110/58
--- NOTE | 2017-12-22 23:18 | Cardiology Report ---
APPROVED REPORT EKG Measurement Heart [id number] NM [id number] Sinus rhythm with fusion complexes Rightward axis Low voltage QRS Abnormal ECG
--- NOTE | 2017-12-22 23:43 | Pulmonolgy Critical Care Note ---
Critical Care - Asmt/Plan Assessment/Plan: Patient is brought in from a long term facility. He has a history of tracheostomy and pulled out his trach because he states that it was bothering him. He wanted it removed. He has no other complaints other than that he is having an anxiety attack and wants antianxiety medications. He has a history of respiratory failure and was unable to extubate and had to undergo tracheostomy previously. He was on a T collar. Currently stableon NC O2 Allergies: Coded Allergies: ERYTHROMYCIN BASE (Verified Allergy, Unknown, 12/19/17) Uncoded Allergies: ERYTHROMYCIN (Allergy, Unknown, 12/19/17) Patient History Past Medical History: see triage record, HTN, COPD, renal disease Past Surgical History: other - Tracheostomy Social History: Denies: smoking, alcohol use, drug use Reviewed Nursing Documentation: PMH: Agreed; PSxH: Agreed Nursing Documentation-PMH Hx Diabetes: Yes History Of Psychiatric Problem: Yes Hx Seizures: Yes Review of Systems All Other Systems: negative except mentioned in HPI Physical Exam Vital Signs Date Time Temp Pulse Resp B/P (MAP) Pulse Ox O2 Delivery O2 Flow Rate FiO2 12/19/17 11:33 97.6 80 16 144/92 97 Nasal Cannula 3.0 97.5 Sp02 EP Interpretation: reviewed, normal General Appearance: no apparent distress, alert, GCS 15, non-toxic, other - morbid obesity Head: normocephalic, atraumatic Eyes: bilateral eye normal inspection, bilateral eye PERRL ENT: hearing grossly normal, normal pharynx, no angioedema, normal voice, other - Dressing C/D/I Neck: full range of motion, supple/symm/no masses, other - Trach site dressed ( C/DI) Respiratory: chest non-tender, lungs clear, normal breath sounds, no respiratory distress, no retraction, no accessory muscle use, speaking full sentences Cardiovascular #1: regular rate, rhythm, no edema Gastrointestinal: normal bowel sounds, non tender, soft, non-distended, no guarding, no rebound Rectal: deferred Musculoskeletal: normal range of motion Neurologic: alert, oriented x3, responsive, motor strength/tone normal, sensory intact, speech normal Psychiatric: judgement/insight normal, memory normal, mood/affect normal, no suicidal/homicidal ideation Skin: normal color, no rash, warm/dry, well hydrated Medical Decision Making Diagnostic Impression: Primary Impression: Trach decannulation This patient did a self trach decannulation. The patient does not want to have a tracheostomy any longer. The patient has no respiratory distress. The patient's O2 sat is 100%. Patient is well-appearing. I will admit the patient to the [facility] given his history of poor weaning off of ventilation as I'm concerned that if he were to decompensate he would be a difficult intubation given his morbid obesity. The patient is on a trach collar previously. Otherwise, the patient's evaluation is benign. The patient is admitted to , stable currently, continue current management Plan: NC O2 Aspiration Precautions ABG CXR: L basal atelectasis Speech therapy in AM SQ Heparin Laboratory Tests Test 12/19/17 12:00 12/19/17 13:03 White Blood Count 6.8 K/UL (4.8-10.8) Red Blood Count 3.56 M/UL (4.70-6.10) L Hemoglobin 9.2 G/DL (14.2-18.0) L Hematocrit 29.2 % (42.0-52.0) L Mean Corpuscular Volume 82 FL (80-99) Mean Corpuscular Hemoglobin 25.8 PG (27.0-31.0) L Mean Corpuscular Hemoglobin Concent 31.4 G/DL (32.0-36.0) L Red Cell Distribution Width 17.4 % (11.6-14.8) H Platelet Count 338 K/UL (150-450) Mean Platelet Volume 7.8 FL (6.5-10.1) Neutrophils (%) (Auto) 64.9 % (45.0-75.0) Lymphocytes (%) (Auto) 24.4 % (20.0-45.0) Monocytes (%) (Auto) 6.6 % (1.0-10.0) Eosinophils (%) (Auto) 3.4 % (0.0-3.0) H Basophils (%) (Auto) 0.8 % (0.0-2.0) Prothrombin Time 11.3 SEC (9.30-11.50) Prothrombin Time INR 1.1 (0.9-1.1) PTT 29 SEC (23-33) Sodium Level 133 MMOL/L (136-145) L Potassium Level 4.6 MMOL/L (3.5-5.1) Chloride Level 99 MMOL/L (98-107) Carbon Dioxide Level 30 MMOL/L (21-32) Anion Gap 4 mmol/L (5-15) L Blood Urea Nitrogen 15 mg/dL (7-18) Creatinine 0.9 MG/DL (0.55-1.30) Estimate Glomerular Filtration Rate > 60 mL/min (>60) Glucose Level 101 MG/DL (74-106) Calcium Level 9.3 MG/DL (8.5-10.1) Total Bilirubin 0.5 MG/DL (0.2-1.0) Aspartate Amino Transferase (AST) 15 U/L (15-37) Alanine Aminotransferase (ALT) 16 U/L (12-78) Alkaline Phosphatase 117 U/L (46-116) H Total Protein 8.2 G/DL (6.4-8.2) Albumin 2.9 G/DL (3.4-5.0) L Globulin 5.3 g/dL Albumin/Globulin Ratio 0.5 (1.0-2.7) L Thyroid Stimulating Hormone (TSH) 4.678 uiU/mL (0.358-3.740) Urine Color Pale yellow Urine Appearance Turbid Urine pH 8 (4.5-8.0) Urine Specific [place] 1.015 (1.005-1.035) Urine Protein 2+ (NEGATIVE) H Urine Glucose (UA) Negative (NEGATIVE) Urine Ketones Negative (NEGATIVE) Urine Occult Blood Negative (NEGATIVE) Urine Nitrite Negative (NEGATIVE) Urine Bilirubin Negative (NEGATIVE) Urine Urobilinogen Normal MG/DL (0.0-1.0) Urine Leukocyte Esterase 1+ (NEGATIVE) H Urine RBC 0-2 /HPF (0 - 0) H Urine WBC 5-10 /HPF (0 - 0) H Urine Squamous Epithelial Cells Few /LPF (NONE/OCC) Urine Amorphous Sediment Many /LPF (NONE) H Urine Bacteria Few /HPF (NONE) EKG Diagnostic Results Rate: normal Rhythm: NSR ST Segments: no acute changes Rhythm Strip Diag. Results EP Interpretation: yes Rate: 70's Rhythm: NSR, no PVC's, no ectopy Last Vital Signs Date Time Temp Pulse Resp B/P (MAP) Pulse Ox O2 Delivery O2 Flow Rate FiO2 12/19/17 13:43 97.5 78 16 123/80 99 Nasal Cannula 3.0 97.5 Critical Care - Objective Last 24 Hour Vital Signs Date Time Temp Pulse Resp B/P (MAP) Pulse Ox O2 Delivery O2 Flow Rate FiO2 12/22/17 21:27 88 110/58 12/22/17 16:00 97.8 82 20 101/61 95 Nasal Cannula 2.0 97.8 12/22/17 16:00 83 12/22/17 12:00 81 12/22/17 12:00 98.6 81 18 99/59 96 Nasal Cannula 2.0 98.6 12/22/17 08:53 Nasal Cannula 2.0 28 12/22/17 08:52 84 16 Nasal Cannula 28 12/22/17 08:43 71 116/61 12/22/17 08:00 98.1 83 20 102/62 96 Nasal Cannula 2.0 98.1 12/22/17 08:00 84 12/22/17 07:10 98.1 12/22/17 04:00 85 12/22/17 04:00 98.1 77 18 120/71 96 Nasal Cannula 2.0 98.1 12/22/17 00:24 97.7 12/22/17 00:00 85 12/22/17 00:00 97.7 83 20 128/80 94 Nasal Cannula 2.0 97.7 12/21/17 23:52 86 128/80 Accucheck: 115 Critical Care - Subjective ROS Limited/Unobtainable: No Condition: stable EKG Rhythm: Sinus Rhythm FI02: 28 Sputum Amount: None Tube Feeding Amount: 45 I&O: Intake and Output 12/21/17 12/22/17 19:00 07:00 Intake Total 315 ml Output Total 600 ml Balance -285 ml Tube Feeding 315 ml Output Urine Total 600 ml # Voids 1 # Bowel Movements 3 1 Allan Elizalde MD December 22, 2017 23:43
[2017-12-23] VITALS (7 sets, daily range): BP systolic 97–128; BP diastolic 60–86
[2017-12-23] MEDS: Morphine Sulfate 4mg/ml Inj IVP PRN ×4 (02:04→15:19)
[2017-12-23] MEDS: LORazepam Inj 2mg/ml 1ml IV PRN ×2 (03:30→13:09)
[2017-12-23] MEDS: Haloperidol 1mg tab GT SCH ×3 (06:18→22:29)
[2017-12-23] MEDS: Lactulose 20gm/30ml UDC GT SCH ×2 (08:16→22:24)
[2017-12-23] MEDS: Valproic Acid 250mg/5ml Liquid NG SCH ×2 (08:16→22:27)
[2017-12-23] MEDS: Docusate 100mg cap ORAL SCH ×2 (08:17→18:27)
[2017-12-23] MEDS: HYDROcodone/Acetamin 10/325 tab GT PRN ×3 (08:19→18:29)
[2017-12-23] MEDS: Labetalol 200mg tab GT SCH ×2 (08:20→22:27)
[2017-12-23] MEDS: Heparin 5000 units/ml inj SUBQ SCH ×2 (08:35→22:29)
--- NOTE | 2017-12-23 08:57 | General Progress Note ---
Assessment/Plan Assessment/Plan (1) Neck pain (2) S/p decannulation (3) H/o polysubstance abuse (4) Neuropathic pain Patient will be continued on Morphine and [place] D/w Dr. Lackey and he concurred. Subjective Date patient seen: December 23, 2017 Time patient seen: 08:15 - am Allergies: Coded Allergies: ERYTHROMYCIN BASE (Verified Allergy, Unknown, 12/19/17) Uncoded Allergies: ERYTHROMYCIN (Allergy, Unknown, 12/19/17) Subjective Review of system Constitutional: Reports: weakness HEENT: Reports: no symptoms Cardiovascular: Reports: no symptoms Respiratory: Reports: no symptoms Gastrointestinal/Abdominal: Reports: no symptoms Genitourinary: Reports: no symptoms Neurologic/Psychiatric: Reports: numbness, tingling, weakness Endocrine: Reports: no symptoms Hematologic/Lymphatic: Reports: no symptoms Subjective Patient has been in bed showing no signs of pain at this time. His pain has been well tolerated on the Morphine and [place]. He has no new complaints at this time. Objective Last 24 Hour Vital Signs Date Time Temp Pulse Resp B/P (MAP) Pulse Ox O2 Delivery O2 Flow Rate FiO2 12/23/17 08:20 95 127/86 12/23/17 08:00 97.5 95 18 127/86 96 Nasal Cannula 2.0 97.5 12/23/17 04:00 98.4 100 19 101/60 96 Nasal Cannula 2.0 98.4 12/23/17 04:00 93 12/23/17 00:00 80 12/23/17 00:00 98.1 81 19 97/61 96 Nasal Cannula 2.0 98.1 12/22/17 21:27 88 110/58 12/22/17 20:28 79 16 Nasal Cannula 2.0 28 12/22/17 20:28 Nasal Cannula 2.0 28 12/22/17 20:00 98.3 88 20 110/58 95 Nasal Cannula 2.0 98.3 12/22/17 20:00 89 12/22/17 16:00 97.8 82 20 101/61 95 Nasal Cannula 2.0 97.8 12/22/17 16:00 83 12/22/17 12:00 81 12/22/17 12:00 98.6 81 18 99/59 96 Nasal Cannula 2.0 98.6 Intake and Output 12/22/17 12/23/17 19:00 07:00 # Voids 2 # Bowel Movements 1 1 Height (Feet): 5 Height (Inches): 8.00 Weight (Pounds): 180 Objective General Appearance: no apparent distress, alert HEENT: PERRL, EOMI Neck: tenderness Respiratory/Chest: decreased breath sounds Cardiovascular/Chest: normal rate, regular rhythm Abdomen: feeding tube Extremities: non-tender Skin Exam: warm/dry Neurologic: alert, oriented x 3 ROMAINE LO December 23, 2017 08:57
--- NOTE | 2017-12-23 09:15 | History and Physical Report ---
DATE OF ADMISSION: 12/19/2017 NOTE: VERY POOR AUDIO HISTORY OF PRESENT ILLNESS: asked me to see the patient in the hospital since he . He removed the tracheostomy himself and was admitted for monitoring the tracheostomy. The patient denies nausea, vomiting, or diarrhea. Denies abdominal pain. Denies shortness of breath. Denies cough. PAST MEDICAL HISTORY: Chronic respiratory failure, constipation, anxiety, hypertension, chronic pain syndrome, iron-deficiency anemia, GERD. PAST SURGICAL HISTORY: History of PEG and trach. MEDICATIONS: , labetalol, lactulose, fentanyl, Colace, clonidine, Klonopin, albuterol, lorazepam. ALLERGIES: Erythromycin. SOCIAL HISTORY: Denies history of alcohol or illicit drugs. FAMILY HISTORY: Noncontributory. REVIEW OF SYSTEMS: HEENT: Denies headaches. RESPIRATORY: Denies shortness of breath. Denies cough. CARDIOVASCULAR: Denies chest pain. Denies orthopnea. GASTROINTESTINAL: Denies nausea, vomiting, or diarrhea. EXTREMITIES: Denies pain in the lower extremities. NEUROLOGIC: Denies change in vision or speech pattern. PHYSICAL EXAMINATION: VITAL SIGNS: Temperature 97.5 degrees, pulse 77, blood pressure 129/78. HEENT: PERRLA. NECK: Supple. No lymphadenopathy. CHEST: Clear to auscultation. GASTROINTESTINAL: Soft, nontender, and nondistended. EXTREMITIES: A 1+ edema. NEUROLOGIC: Reflexes equal on both sides. Able to move all four extremities. . LABORATORY DATA: WBC of . Sodium 136, potassium 4.6, BUN of 15, creatinine 0.9, glucose of 109. ASSESSMENT AND PLAN: . We will monitor closely. I have asked Dr. Russo to see the patient as well as Dr. Ken, Dr. Agarwal as well as Dr. Lackey and Dr. Molina will see the patient for chronic pain syndrome as well as for the treatment of possible UTI. Evelina Mccallum M.D. DR: [place] JOB#: [id number] CC:
--- NOTE | 2017-12-23 11:02 | Infectious Diseases Prog Note ---
Assessment/Plan Assessment/Plan A; Skin lesions/ healing ulcers COPD s/p self removal of tracheostomy Gastrostomy status HPn P; observe off antibiotic Agree with discharge to SNF Subjective ROS Limited/Unobtainable: Yes Respiratory: Reports: dry cough Allergies: Coded Allergies: ERYTHROMYCIN BASE (Verified Allergy, Unknown, 12/19/17) Uncoded Allergies: ERYTHROMYCIN (Allergy, Unknown, 12/19/17) Objective Vital Signs Last 24 Hour Vital Signs Date Time Temp Pulse Resp B/P (MAP) Pulse Ox O2 Delivery O2 Flow Rate FiO2 12/23/17 08:25 95 18 Nasal Cannula 2.0 28 12/23/17 08:25 Nasal Cannula 2.0 28 12/23/17 08:20 95 127/86 12/23/17 08:00 97.5 95 18 127/86 96 Nasal Cannula 2.0 97.5 12/23/17 04:00 98.4 100 19 101/60 96 Nasal Cannula 2.0 98.4 12/23/17 04:00 93 12/23/17 00:00 80 12/23/17 00:00 98.1 81 19 97/61 96 Nasal Cannula 2.0 98.1 12/22/17 21:27 88 110/58 12/22/17 20:28 79 16 Nasal Cannula 2.0 28 12/22/17 20:28 Nasal Cannula 2.0 28 12/22/17 20:00 98.3 88 20 110/58 95 Nasal Cannula 2.0 98.3 12/22/17 20:00 89 12/22/17 16:00 97.8 82 20 101/61 95 Nasal Cannula 2.0 97.8 12/22/17 16:00 83 12/22/17 12:00 81 12/22/17 12:00 98.6 81 18 99/59 96 Nasal Cannula 2.0 98.6 Height (Feet): 5 Height (Inches): 8.00 Weight (Pounds): 180 General Appearance: no acute distress HEENT: mucous membranes moist Respiratory/Chest: lungs clear Cardiovascular: normal rate Abdomen: soft, non tender Extremities: no edema Skin: ulcers, other - healing Neurologic/Psychiatric: alert, responsive Current Medications Medications (Trade) Dose Ordered Sig/Nati Route PRN Reason Start Time Stop Time Status Last Admin Dose Admin Acetaminophen (Tylenol) 650 mg Q4H PRN GT Mild Pain/Temp > 100.5 12/21/17 19:07 01/18/18 19:06 Acetaminophen/ Hydrocodone Bitart ([place] 10/325) 1 tab Q4H PRN GT Moderate Pain (Pain Scale 4-6) 12/21/17 19:12 12/26/17 19:11 12/23/17 08:19 Albuterol Sulfate (Proventil) 2.5 mg Q4H PRN HHN Shortness of Breath 12/21/17 20:30 12/24/17 16:29 Clonazepam (KlonoPIN) 1 mg EVERY 12 HOURS GT 12/21/17 21:00 12/26/17 20:59 12/23/17 08:20 Clonidine HCl (Catapres tab) 0.2 mg Q6H PRN GT SBP > 160mmHg 12/21/17 19:08 01/18/18 19:07 Diphenhydramine HCl (Benadryl) 25 mg Q6H PRN ORAL Itching 12/21/17 19:08 01/20/18 19:07 12/21/17 23:53 Docusate Sodium (Colace) 100 mg TWICE A DAY ORAL 12/22/17 09:00 01/18/18 17:59 12/23/17 08:17 Gabapentin (Neurontin) 300 mg Q8HR GT 12/21/17 22:00 01/20/18 21:59 12/23/17 06:18 Haloperidol (Haldol) 3 mg EVERY 8 HOURS GT 12/21/17 22:00 01/18/18 21:59 12/23/17 06:18 Heparin Sodium (Porcine) (Heparin 5000 units/ml) 5,000 units EVERY 12 HOURS SUBQ 12/21/17 21:00 01/18/18 20:59 12/23/17 08:35 Hydralazine HCl (Apresoline) 10 mg Q4H PRN GT SBP > 160mmHg 12/21/17 19:10 01/18/18 19:09 Ipratropium [place] (Atrovent) 500 mcg Q6H PRN HHN For wheezing, SOB 12/21/17 19:12 12/24/17 19:11 Labetalol HCl (Normodyne) 200 mg EVERY 12 HOURS GT 12/21/17 21:00 01/18/18 20:59 12/23/17 08:20 Lactulose (Cephulac) 20 gm EVERY 12 HOURS GT 12/21/17 21:00 01/18/18 20:59 12/23/17 08:16 Lansoprazole (Prevacid) 30 mg DAILY GT 12/22/17 09:00 01/19/18 08:59 12/23/17 08:17 Lorazepam (Ativan 2mg/ml 1ml) 2 mg Q6H PRN IV Agitation 12/21/17 19:11 12/26/17 19:10 12/23/17 03:30 Methocarbamol (Robaxin) 500 mg Q8H PRN ORAL muscle spasm 12/21/17 19:11 01/20/18 19:10 Morphine Sulfate (Morphine Sulfate) 4 mg Q4H PRN IVP Severe Pain (Pain Scale 7-10) 12/21/17 19:12 12/26/17 19:11 12/23/17 10:48 Rifaximin (Xifaxan) 550 mg EVERY 12 HOURS GT 12/21/17 21:00 12/26/17 20:59 12/23/17 08:18 Valproic Acid (Depakene) 500 mg EVERY 12 HOURS NG 12/21/17 21:00 01/18/18 20:59 12/23/17 08:16 CHRISTO BELLO December 23, 2017 11:02
--- NOTE | 2017-12-23 21:00 | General Progress Note ---
Assessment/Plan Problem List: (1) T-tube removal per patient SNOMED: [id number] Status: progressing Assessment/Plan dc back to snf moniter post decanulation Subjective ROS Limited/Unobtainable: Yes Allergies: Coded Allergies: ERYTHROMYCIN BASE (Verified Allergy, Unknown, 12/19/17) Uncoded Allergies: ERYTHROMYCIN (Allergy, Unknown, 12/19/17) Objective Last 24 Hour Vital Signs Date Time Temp Pulse Resp B/P (MAP) Pulse Ox O2 Delivery O2 Flow Rate FiO2 12/23/17 16:00 97.7 87 19 117/72 94 Nasal Cannula 2.0 97.7 12/23/17 16:00 92 12/23/17 12:00 97.7 74 16 118/70 94 Nasal Cannula 2.0 97.7 12/23/17 12:00 82 12/23/17 08:25 95 18 Nasal Cannula 2.0 28 12/23/17 08:25 Nasal Cannula 2.0 28 12/23/17 08:20 95 127/86 12/23/17 08:00 88 12/23/17 08:00 97.5 95 18 127/86 96 Nasal Cannula 2.0 97.5 12/23/17 04:00 98.4 100 19 101/60 96 Nasal Cannula 2.0 98.4 12/23/17 04:00 93 12/23/17 00:00 80 12/23/17 00:00 98.1 81 19 97/61 96 Nasal Cannula 2.0 98.1 12/22/17 21:27 88 110/58 Intake and Output 12/22/17 12/23/17 19:00 07:00 # Voids 2 # Bowel Movements 1 1 Height (Feet): 5 Height (Inches): 8.00 Weight (Pounds): 180 Cardiovascular: normal rate Respiratory/Chest: lungs clear Evelina Mccallum MD December 23, 2017 21:00
--- NOTE | 2017-12-23 21:53 | Pulmonolgy Critical Care Note ---
Critical Care - Asmt/Plan Assessment/Plan: [facility]. He has a history of tracheostomy and pulled out his trach because he states that it was bothering him. He wanted it removed. He has no other complaints other than that he is having an anxiety attack and wants antianxiety medications. He has a history of respiratory failure and was unable to extubate and had to undergo tracheostomy previously. He was on a T collar. Currently stable on NC O2, no new complaints Allergies: Coded Allergies: ERYTHROMYCIN BASE (Verified Allergy, Unknown, 12/19/17) Uncoded Allergies: ERYTHROMYCIN (Allergy, Unknown, 12/19/17) Patient History Past Medical History: see triage record, HTN, COPD, renal disease Past Surgical History: other - Tracheostomy Social History: Denies: smoking, alcohol use, drug use Reviewed Nursing Documentation: PMH: Agreed; PSxH: Agreed Nursing Documentation-PMH Hx Diabetes: Yes History Of Psychiatric Problem: Yes Hx Seizures: Yes Review of Systems All Other Systems: negative except mentioned in HPI Physical Exam Vital Signs Date Time Temp Pulse Resp B/P (MAP) Pulse Ox O2 Delivery O2 Flow Rate FiO2 12/19/17 11:33 97.6 80 16 144/92 97 Nasal Cannula 3.0 97.5 Sp02 EP Interpretation: reviewed, normal General Appearance: no apparent distress, alert, GCS 15, non-toxic, other - morbid obesity Head: normocephalic, atraumatic Eyes: bilateral eye normal inspection, bilateral eye PERRL ENT: hearing grossly normal, normal pharynx, no angioedema, normal voice, other - Dressing C/D/I Neck: full range of motion, supple/symm/no masses, other - Trach site dressed ( C/DI) Respiratory: chest non-tender, lungs clear, normal breath sounds, no respiratory distress, no retraction, no accessory muscle use, speaking full sentences Cardiovascular #1: regular rate, rhythm, no edema Gastrointestinal: normal bowel sounds, non tender, soft, non-distended, no guarding, no rebound Rectal: deferred Musculoskeletal: normal range of motion Neurologic: alert, oriented x3, responsive, motor strength/tone normal, sensory intact, speech normal Psychiatric: judgement/insight normal, memory normal, mood/affect normal, no suicidal/homicidal ideation Skin: normal color, no rash, warm/dry, well hydrated Medical Decision Making Diagnostic Impression: Primary Impression: Trach decannulation This patient did a self trach decannulation. The patient does not want to have a tracheostomy any longer. The patient has no respiratory distress. The patient's O2 sat is 100%. Patient is well-appearing. I will admit the patient to the [facility] given his history of poor weaning off of ventilation as I'm concerned that if he were to decompensate he would be a difficult intubation given his morbid obesity. The patient is on a trach collar previously. Otherwise, the patient's evaluation is benign. The patient is admitted to , stable currently, continue current management Plan: NC O2 Aspiration Precautions ABG CXR: L basal atelectasis Speech therapy in AM SQ Heparin Laboratory Tests Test 12/19/17 12:00 12/19/17 13:03 White Blood Count 6.8 K/UL (4.8-10.8) Red Blood Count 3.56 M/UL (4.70-6.10) L Hemoglobin 9.2 G/DL (14.2-18.0) L Hematocrit 29.2 % (42.0-52.0) L Mean Corpuscular Volume 82 FL (80-99) Mean Corpuscular Hemoglobin 25.8 PG (27.0-31.0) L Mean Corpuscular Hemoglobin Concent 31.4 G/DL (32.0-36.0) L Red Cell Distribution Width 17.4 % (11.6-14.8) H Platelet Count 338 K/UL (150-450) Mean Platelet Volume 7.8 FL (6.5-10.1) Neutrophils (%) (Auto) 64.9 % (45.0-75.0) Lymphocytes (%) (Auto) 24.4 % (20.0-45.0) Monocytes (%) (Auto) 6.6 % (1.0-10.0) Eosinophils (%) (Auto) 3.4 % (0.0-3.0) H Basophils (%) (Auto) 0.8 % (0.0-2.0) Prothrombin Time 11.3 SEC (9.30-11.50) Prothrombin Time INR 1.1 (0.9-1.1) PTT 29 SEC (23-33) Sodium Level 133 MMOL/L (136-145) L Potassium Level 4.6 MMOL/L (3.5-5.1) Chloride Level 99 MMOL/L (98-107) Carbon Dioxide Level 30 MMOL/L (21-32) Anion Gap 4 mmol/L (5-15) L Blood Urea Nitrogen 15 mg/dL (7-18) Creatinine 0.9 MG/DL (0.55-1.30) Estimate Glomerular Filtration Rate > 60 mL/min (>60) Glucose Level 101 MG/DL (74-106) Calcium Level 9.3 MG/DL (8.5-10.1) Total Bilirubin 0.5 MG/DL (0.2-1.0) Aspartate Amino Transferase (AST) 15 U/L (15-37) Alanine Aminotransferase (ALT) 16 U/L (12-78) Alkaline Phosphatase 117 U/L (46-116) H Total Protein 8.2 G/DL (6.4-8.2) Albumin 2.9 G/DL (3.4-5.0) L Globulin 5.3 g/dL Albumin/Globulin Ratio 0.5 (1.0-2.7) L Thyroid Stimulating Hormone (TSH) 4.678 uiU/mL (0.358-3.740) Urine Color Pale yellow Urine Appearance Turbid Urine pH 8 (4.5-8.0) Urine Specific [place] 1.015 (1.005-1.035) Urine Protein 2+ (NEGATIVE) H Urine Glucose (UA) Negative (NEGATIVE) Urine Ketones Negative (NEGATIVE) Urine Occult Blood Negative (NEGATIVE) Urine Nitrite Negative (NEGATIVE) Urine Bilirubin Negative (NEGATIVE) Urine Urobilinogen Normal MG/DL (0.0-1.0) Urine Leukocyte Esterase 1+ (NEGATIVE) H Urine RBC 0-2 /HPF (0 - 0) H Urine WBC 5-10 /HPF (0 - 0) H Urine Squamous Epithelial Cells Few /LPF (NONE/OCC) Urine Amorphous Sediment Many /LPF (NONE) H Urine Bacteria Few /HPF (NONE) EKG Diagnostic Results Rate: normal Rhythm: NSR ST Segments: no acute changes Rhythm Strip Diag. Results EP Interpretation: yes Rate: 70's Rhythm: NSR, no PVC's, no ectopy Last Vital Signs Date Time Temp Pulse Resp B/P (MAP) Pulse Ox O2 Delivery O2 Flow Rate FiO2 12/19/17 13:43 97.5 78 16 123/80 99 Nasal Cannula 3.0 97.5 Critical Care - Objective Last 24 Hour Vital Signs Date Time Temp Pulse Resp B/P (MAP) Pulse Ox O2 Delivery O2 Flow Rate FiO2 12/23/17 19:30 Nasal Cannula 2.0 28 12/23/17 19:30 96 Nasal Cannula 2.0 28 12/23/17 19:30 92 18 Nasal Cannula 2.0 28 12/23/17 16:00 97.7 87 19 117/72 94 Nasal Cannula 2.0 97.7 12/23/17 16:00 92 12/23/17 12:00 97.7 74 16 118/70 94 Nasal Cannula 2.0 97.7 12/23/17 12:00 82 12/23/17 08:25 95 18 Nasal Cannula 2.0 12/23/17 08:25 Nasal Cannula 2.0 12/23/17 08:20 95 127/86 12/23/17 08:00 88 12/23/17 08:00 97.5 95 18 127/86 96 Nasal Cannula 2.0 97.5 12/23/17 04:00 98.4 100 19 101/60 96 Nasal Cannula 2.0 98.4 12/23/17 04:00 93 12/23/17 00:00 80 12/23/17 00:00 98.1 81 19 97/61 96 Nasal Cannula 2.0 98.1 Accucheck: 115 Critical Care - Subjective ROS Limited/Unobtainable: No Condition: stable EKG Rhythm: Sinus Rhythm FI02: 28 Sputum Amount: None Tube Feeding Amount: 45 I&O: Intake and Output 12/22/17 12/23/17 19:00 07:00 # Voids 2 # Bowel Movements 1 1 Allan Elizalde MD December 23, 2017 21:53
--- NOTE | 2017-12-23 23:21 | Consultation ---
History of Present Illness General Date patient seen: December 23, 2017 Chief Complaint: Dyspnea/Respdistress Referring physician: Dr. Mccallum Reason for Consultation: Pain managament Present Illness HPI 47-year-old white male admitted on 12/19/2017 from longterm facility after self-removal of tracheostomy. the pt has hx of bipolar d/o. the pt was lethargic. per staff the pt either yells or lethargic. the pt was unable to provide hx Allergies: Coded Allergies: ERYTHROMYCIN BASE (Verified Allergy, Unknown, 12/19/17) Uncoded Allergies: ERYTHROMYCIN (Allergy, Unknown, 12/19/17) Medication History Scheduled Bisacodyl* (Dulcolax*), 20 MG RECTAL ONCE, (Reported) Clonazepam* (Klonopin*), 1 MG GT EVERY 12 HOURS, (Reported) Docusate Sodium* (Docusate Sodium*), 100 MG ORAL TWICE A DAY, (Reported) Fentanyl 50MCG Patch (Fentanyl 50MCG Patch*), 1 PATCH TOPIC EVERY 72 HOURS, ( Reported) Ferrous Sulfate* (Ferrous Sulfate*), 300 MG GT DAILY, (Reported) Haloperidol* (Haldol*), 3 MG GT EVERY 8 HOURS, (Reported) Hydralazine Hcl* (Hydralazine Hcl*), 10 MG IV EVERY 30 MINUTES, (Reported) Labetalol Hcl* (Normodyne*), 200 MG GT EVERY 12 HOURS, (Reported) Lactulose (Lactulose*), 30 ML GT EVERY 12 HOURS, (Reported) Lansoprazole* (Lansoprazole*), 30 MG GT DAILY, (Reported) Rifaximin* (Xifaxan*), 550 MG GT EVERY 12 HOURS, (Reported) Valproic Acid (Valproic Acid), 500 MG GT EVERY 12 HOURS, (Reported) Scheduled PRN Acetaminophen* (Acetaminophen 325MG Tablet*), 650 MG GT Q4H PRN for Pain Scale ( 6-10), (Reported) Albuterol Sulfate* (Albuterol Sulfate Hhn*), 3 ML INH Q4H PRN for Shortness of Breath, (Reported) Clonidine HCl (Clonidine HCl), 0.2 MG GT Q6HR PRN for For High Blood Pressure, ( Reported) Lorazepam* (Lorazepam*), 2 MG IV EVERY 6 HOURS PRN for Agitation, (Reported) Discontinued Medications Amlodipine Besylate* (Amlodipine Besylate*), 5 MG GT DAILY, (Reported) Discontinued Reason: Therapy completed Cefepime Hcl/D5w (Cefepime-Dextrose 2 Gm/50 Ml), 2 GM IVPB EVERY 12 HOURS, ( Reported) Discontinued Reason: Therapy completed Cholecalciferol (Vitamin D3)* (Vitamin D*), 2,000 UNITS GT DAILY, (Reported) Discontinued Reason: Therapy completed Patient History Limited by: medical condition History Provided By: Medical Record Healthcare decision maker Resuscitation status Full Code Advanced Directive on File No Past Medical/Surgical History Past Medical/Surgical History: (1) T-tube removal per patient Review of Systems Psychiatric: Reports: prior hx, anxiety, depressed feelings, emotional problems Physical Exam General Appearance: no apparent distress, lethargic, confused, agitated Last 24 Hour Vital Signs Date Time Temp Pulse Resp B/P (MAP) Pulse Ox O2 Delivery O2 Flow Rate FiO2 12/23/17 22:27 90 128/77 12/23/17 20:00 98.2 90 20 128/77 96 Nasal Cannula 2.0 98.2 12/23/17 19:30 Nasal Cannula 2.0 28 12/23/17 19:30 96 Nasal Cannula 2.0 28 12/23/17 19:30 92 18 Nasal Cannula 2.0 28 12/23/17 16:00 97.7 87 19 117/72 94 Nasal Cannula 2.0 97.7 12/23/17 16:00 92 12/23/17 12:00 97.7 74 16 118/70 94 Nasal Cannula 2.0 97.7 12/23/17 12:00 82 12/23/17 08:25 95 18 Nasal Cannula 2.0 28 12/23/17 08:25 Nasal Cannula 2.0 28 12/23/17 08:20 95 127/86 12/23/17 08:00 88 12/23/17 08:00 97.5 95 18 127/86 96 Nasal Cannula 2.0 97.5 12/23/17 04:00 98.4 100 19 101/60 96 Nasal Cannula 2.0 98.4 12/23/17 04:00 93 12/23/17 00:00 80 12/23/17 00:00 98.1 81 19 97/61 96 Nasal Cannula 2.0 98.1 Intake and Output 12/22/17 12/23/17 19:00 07:00 # Voids 2 # Bowel Movements 1 1 Height (Feet): 5 Height (Inches): 8.00 Weight (Pounds): 180 Medications Current Medications Medications (Trade) Dose Ordered Sig/Nati Route PRN Reason Start Time Stop Time Status Last Admin Dose Admin Acetaminophen (Tylenol) 650 mg Q4H PRN GT Mild Pain/Temp > 100.5 12/21/17 19:07 01/18/18 19:06 Acetaminophen/ Hydrocodone Bitart ([place] 10/325) 1 tab Q4H PRN GT Moderate Pain (Pain Scale 4-6) 12/21/17 19:12 12/26/17 19:11 12/23/17 18:29 Albuterol Sulfate (Proventil) 2.5 mg Q4H PRN HHN Shortness of Breath 12/21/17 20:30 12/24/17 16:29 Clonazepam (KlonoPIN) 1 mg EVERY 12 HOURS GT 12/21/17 21:00 12/26/17 20:59 12/23/17 22:28 Clonidine HCl (Catapres tab) 0.2 mg Q6H PRN GT SBP > 160mmHg 12/21/17 19:08 01/18/18 19:07 Diphenhydramine HCl (Benadryl) 25 mg Q6H PRN ORAL Itching 12/21/17 19:08 01/20/18 19:07 12/21/17 23:53 Docusate Sodium (Colace) 100 mg TWICE A DAY ORAL 12/22/17 09:00 01/18/18 17:59 12/23/17 18:27 Gabapentin (Neurontin) 300 mg Q8HR GT 12/21/17 22:00 01/20/18 21:59 12/23/17 22:28 Haloperidol (Haldol) 3 mg EVERY 8 HOURS GT 12/21/17 22:00 01/18/18 21:59 12/23/17 22:29 Heparin Sodium (Porcine) (Heparin 5000 units/ml) 5,000 units EVERY 12 HOURS SUBQ 12/21/17 21:00 01/18/18 20:59 12/23/17 22:29 Hydralazine HCl (Apresoline) 10 mg Q4H PRN GT SBP > 160mmHg 12/21/17 19:10 01/18/18 19:09 Ipratropium [place] (Atrovent) 500 mcg Q6H PRN HHN For wheezing, SOB 12/21/17 19:12 12/24/17 19:11 Labetalol HCl (Normodyne) 200 mg EVERY 12 HOURS GT 12/21/17 21:00 01/18/18 20:59 12/23/17 22:27 Lactulose (Cephulac) 20 gm EVERY 12 HOURS GT 12/21/17 21:00 01/18/18 20:59 12/23/17 22:24 Lansoprazole (Prevacid) 30 mg DAILY GT 12/22/17 09:00 01/19/18 08:59 12/23/17 08:17 Lorazepam (Ativan 2mg/ml 1ml) 2 mg Q6H PRN IV Agitation 12/21/17 19:11 12/26/17 19:10 12/23/17 13:09 Methocarbamol (Robaxin) 500 mg Q8H PRN ORAL muscle spasm 12/21/17 19:11 01/20/18 19:10 Morphine Sulfate (Morphine Sulfate) 4 mg Q4H PRN IVP Severe Pain (Pain Scale 7-10) 12/21/17 19:12 12/26/17 19:11 12/23/17 15:19 Rifaximin (Xifaxan) 550 mg EVERY 12 HOURS GT 12/21/17 21:00 12/26/17 20:59 12/23/17 22:28 Valproic Acid (Depakene) 500 mg EVERY 12 HOURS NG 12/21/17 21:00 01/18/18 20:59 12/23/17 22:27 Assessment/Plan Status: stable Assessment/Plan bipolar d/o encephalopathy dc haldol risperdal 1mg bid depakote 500 bid klonopin 1mg qhs Vikash Molina M.D. December 23, 2017 23:21
[2017-12-24] VITALS: BP 125/68
[2017-12-24 04:00] VITALS: BP 132/63
[2017-12-24] MEDS: Morphine Sulfate 4mg/ml Inj IVP PRN (04:23)
[2017-12-24 08:00] VITALS: BP 141/83
[2017-12-24] MEDS: Valproic Acid 250mg/5ml Liquid NG SCH (08:47)
[2017-12-24] MEDS: Lactulose 20gm/30ml UDC GT SCH (08:47)
[2017-12-24] MEDS: Heparin 5000 units/ml inj SUBQ SCH (08:48)
[2017-12-24] MEDS: Docusate 100mg cap ORAL SCH (08:48)
[2017-12-24] MEDS: Labetalol 200mg tab GT SCH (08:48)
--- NOTE | 2017-12-24 11:09 | Infectious Diseases Prog Note ---
Assessment/Plan Assessment/Plan A; Skin lesions/ healing ulcers COPD s/p self removal of tracheostomy Gastrostomy status HPn P; observe off antibiotic Agree with discharge to SNF Subjective ROS Limited/Unobtainable: Yes Constitutional: Reports: no symptoms Allergies: Coded Allergies: ERYTHROMYCIN BASE (Verified Allergy, Unknown, 12/19/17) Uncoded Allergies: ERYTHROMYCIN (Allergy, Unknown, 12/19/17) Objective Vital Signs Last 24 Hour Vital Signs Date Time Temp Pulse Resp B/P (MAP) Pulse Ox O2 Delivery O2 Flow Rate FiO2 12/24/17 08:48 88 141/83 12/24/17 08:00 98.1 88 23 141/83 97 Nasal Cannula 2.0 98.1 12/24/17 04:00 96.9 84 20 132/63 96 Nasal Cannula 2.0 96.9 12/24/17 03:48 86 12/24/17 00:00 97.3 81 19 125/68 97 Nasal Cannula 2.0 97.3 12/23/17 23:51 87 12/23/17 22:27 90 128/77 12/23/17 20:00 98.2 90 20 128/77 96 Nasal Cannula 2.0 98.2 12/23/17 19:30 Nasal Cannula 2.0 28 12/23/17 19:30 96 Nasal Cannula 2.0 28 12/23/17 19:30 92 18 Nasal Cannula 2.0 28 12/23/17 19:00 89 12/23/17 16:00 97.7 87 19 117/72 94 Nasal Cannula 2.0 97.7 12/23/17 16:00 92 12/23/17 12:00 97.7 74 16 118/70 94 Nasal Cannula 2.0 97.7 12/23/17 12:00 82 Height (Feet): 5 Height (Inches): 8.00 Weight (Pounds): 180 General Appearance: no acute distress HEENT: mucous membranes moist Respiratory/Chest: lungs clear Cardiovascular: normal rate Abdomen: soft, non tender, other - GT in place Extremities: no edema Neurologic/Psychiatric: alert, responsive, other - lethargic Current Medications Medications (Trade) Dose Ordered Sig/Nati Route PRN Reason Start Time Stop Time Status Last Admin Dose Admin Acetaminophen (Tylenol) 650 mg Q4H PRN GT Mild Pain/Temp > 100.5 12/21/17 19:07 01/18/18 19:06 Acetaminophen/ Hydrocodone Bitart ([place] 10/325) 1 tab Q4H PRN GT Moderate Pain (Pain Scale 4-6) 12/21/17 19:12 12/26/17 19:11 12/23/17 18:29 Albuterol Sulfate (Proventil) 2.5 mg Q4H PRN HHN Shortness of Breath 12/21/17 20:30 12/24/17 16:29 Clonazepam (KlonoPIN) 1 mg EVERY 12 HOURS GT 12/21/17 21:00 12/26/17 20:59 12/24/17 08:47 Clonidine HCl (Catapres tab) 0.2 mg Q6H PRN GT SBP > 160mmHg 12/21/17 19:08 01/18/18 19:07 Diphenhydramine HCl (Benadryl) 25 mg Q6H PRN ORAL Itching 12/21/17 19:08 01/20/18 19:07 12/21/17 23:53 Docusate Sodium (Colace) 100 mg TWICE A DAY ORAL 12/22/17 09:00 01/18/18 17:59 12/24/17 08:48 Gabapentin (Neurontin) 300 mg Q8HR GT 12/21/17 22:00 01/20/18 21:59 12/24/17 05:37 Heparin Sodium (Porcine) (Heparin 5000 units/ml) 5,000 units EVERY 12 HOURS SUBQ 12/21/17 21:00 01/18/18 20:59 12/24/17 08:48 Hydralazine HCl (Apresoline) 10 mg Q4H PRN GT SBP > 160mmHg 12/21/17 19:10 01/18/18 19:09 Ipratropium [place] (Atrovent) 500 mcg Q6H PRN HHN For wheezing, SOB 12/21/17 19:12 12/24/17 19:11 Labetalol HCl (Normodyne) 200 mg EVERY 12 HOURS GT 12/21/17 21:00 01/18/18 20:59 12/24/17 08:48 Lactulose (Cephulac) 20 gm EVERY 12 HOURS GT 12/21/17 21:00 01/18/18 20:59 12/24/17 08:47 Lansoprazole (Prevacid) 30 mg DAILY GT 12/22/17 09:00 01/19/18 08:59 12/24/17 08:47 Lorazepam (Ativan 2mg/ml 1ml) 2 mg Q6H PRN IV Agitation 12/21/17 19:11 12/26/17 19:10 12/23/17 13:09 Methocarbamol (Robaxin) 500 mg Q8H PRN ORAL muscle spasm 12/21/17 19:11 01/20/18 19:10 Morphine Sulfate (Morphine Sulfate) 4 mg Q4H PRN IVP Severe Pain (Pain Scale 7-10) 12/21/17 19:12 12/26/17 19:11 12/24/17 04:23 Rifaximin (Xifaxan) 550 mg EVERY 12 HOURS GT 12/21/17 21:00 12/26/17 20:59 12/24/17 08:48 Risperidone (RisperDAL) 1 mg BID ORAL 12/23/17 23:24 01/22/18 23:23 12/24/17 08:48 Valproic Acid (Depakene) 500 mg EVERY 12 HOURS NG 12/21/17 21:00 01/18/18 20:59 12/24/17 08:47 CHRISTO BELLO December 24, 2017 11:09
[2017-12-24 12:00] VITALS: BP 124/75
[2017-12-24 16:00] VITALS: BP 131/83
--- NOTE | 2017-12-24 22:56 | General Progress Note ---
Assessment/Plan Status Narrative bipolar d/o encephalopathy dc haldol risperdal 1mg bid depakote 500 bid klonopin 1mg qhs Subjective Date patient seen: December 24, 2017 Neurologic/Psychiatric: Reports: anxiety, depressed, emotional problems Allergies: Coded Allergies: ERYTHROMYCIN BASE (Verified Allergy, Unknown, 12/19/17) Uncoded Allergies: ERYTHROMYCIN (Allergy, Unknown, 12/19/17) Objective Last 24 Hour Vital Signs Date Time Temp Pulse Resp B/P (MAP) Pulse Ox O2 Delivery O2 Flow Rate FiO2 12/24/17 16:00 98.4 89 21 131/83 96 Nasal Cannula 2.0 98.4 12/24/17 12:00 81 12/24/17 12:00 98.2 72 22 124/75 96 Nasal Cannula 2.0 98.2 12/24/17 08:48 88 141/83 12/24/17 08:00 98.1 88 23 141/83 97 Nasal Cannula 2.0 98.1 12/24/17 08:00 89 12/24/17 04:00 96.9 84 20 132/63 96 Nasal Cannula 2.0 96.9 12/24/17 03:48 86 12/24/17 00:00 97.3 81 19 125/68 97 Nasal Cannula 2.0 97.3 12/23/17 23:51 87 Intake and Output 12/23/17 12/24/17 19:00 07:00 Intake Total 45 ml 890 ml Balance 45 ml 890 ml Intake Free Water 150 ml Tube Feeding 45 ml 540 ml Other 200 ml # Voids 2 2 # Bowel Movements 5 3 Height (Feet): 5 Height (Inches): 8.00 Weight (Pounds): 180 General Appearance: no apparent distress, lethargic, agitated Vikash Molina M.D. December 24, 2017 22:56
--- NOTE | 2017-12-25 16:48 | Discharge Summary ---
Discharge Summary Discharge Summary _ DATE OF ADMISSION: 12/19/2017 DATE OF DISCHARGE: 12/24/2017 CONSULTANTS: Dr. Vikash Elizalde BRIEF HOSPITAL COURSE: Patient is a 47-year-old male, who was brought in via EMS from [email or web address] for dyspnea/respiratory distress. He has history of tracheostomy and pulled out his trach because he stated that it was bothering him. He wanted it removed. He was having anxiety attacks. He has history of respiratory failure and was unable to be extubated, he had to undergo tracheostomy previously. He was on T-collar. On evaluation at ED, O2 saturation was 100%. Patient did not want to have tracheostomy inserted back. Due to history of poor weaning, there was concern that he would decompensate. He was then admitted. Respiratory status was monitored. He has history of bipolar disorder and per nursing staff report patient is very lethargic or was yelling. He was given Risperdal 1 mg twice a day, Depakote 500 mg twice a day and Klonopin 1 mg daily at bedtime; Haldol was discontinued. He complained of neck pain and neuropathic pain and was given morphine and [place]. He had skin rashes/multiple skin lesions likely healing ulcers that seemed to be superficial. He was observed off antibiotics. O2 saturation was stable, he was eventually discharged back to [facility]. FINAL DIAGNOSES: Respiratory failure on trach collar status post T-tube removal by patient Bipolar disorder Encephalopathy Skin lesion's/healing ulcers COPD Gastrostomy status Morbid obesity Neck pain Neuropathic pain DISPOSITION: Patient was discharged to [place]. I have been assigned to dictate discharge summary on this account, and I was not involved in the patient's management. Archana Woodson NP December 25, 2017 16:48
== END 2017-12-24 16:56 | DRG 143 ==
LOC: EDBD 11:30 → EMR 12:19 → 2W 12:39 → EDBEDREQ 12:54 → 2E 12-21 19:05
DX: Z43.0 Encounter for attention to tracheostomy (principal); G93.40 Encephalopathy, unspecified; J96.10 Chronic respiratory failure, unspecified whether with hypoxia or hypercapnia; Z43.1 Encounter for attention to gastrostomy; G62.9 Polyneuropathy, unspecified; F31.9 Bipolar disorder, unspecified; G89.4 Chronic pain syndrome; F41.9 Anxiety disorder, unspecified; M54.2 Cervicalgia; J44.9 Chronic obstructive pulmonary disease, unspecified; E66.01 Morbid (severe) obesity due to excess calories; Z88.1 Allergy status to other antibiotic agents; L98.499 Non-pressure chronic ulcer of skin of other sites with unspecified severity; I10 Essential (primary) hypertension
CPT/HCPCS: 36415; 36600; 71045; 74230; 80053; 81003; 82803; 84443; 85025; 85610; 85730; 87081; 93005; 94664; 94760; 99285